=== PATIENT | female | born 1935 | race Caucasian/White ===

== ENCOUNTER 2017-01-04 10:25 | Observation (INO) ==
--- NOTE | 2017-01-04 10:55 | Emergency Department Note ---
Disposition Clinical Impression: Chest pain Qualifiers: Chest pain type: unspecified Qualified Code(s): R07.9 - Chest pain, unspecified Disposition: Admitted As Inpatient Condition: Fair Referrals: Genaro Pérez DO [Primary Care Provider] - Forms: Work/School Release, ED Satisfaction Letter Time of Disposition: 11:42 Chest Pain HPI - General Chief Complaint: ED General Medical Stated Complaint: Multi Complaints Time Seen by Provider: 01/04/17 10:47 Source: patient Limitations: no limitations Vital Signs Reviewed: Yes Nursing Notes Reviewed: Yes - History of Present Illness HPI Narrative: 81-year-old female with history of CAD, status post 3 stents to LAD, RCA RPDA, and with Dr. Heaton, she follows Dr. Oh, she started having chest pain or rest that was 7 out of 10, crampy crushing with radiation to her left arm, felt similar to previous [place], this was at 4 AM this morning, has since resolved completely. Patient now is complaining of a bilateral frontal headache. She rates as 9 out of 10. No neuro symptoms or deficits no weakness in her upper or lower extremities. Patient reported some shortness of breath. Patient's symptoms somewhat improved with her chest pain, she cannot take aspirin or nitroglycerin today, patient denies recent fever chills with changes, nausea vomiting diarrhea constipation dysuria or hematuria Pt complaint: chest pain Onset (ago): hour(s) (4AM) Duration: intermittent Onset: during rest Pain Location: left chest Severity: mild Severity scale (1-10): 7 Quality: aching Pain Radiation: LUE Improves with: nothing Worsens with: nothing Associated symptoms: Reports: nausea Treatments prior to arrival chest pain: none - Related Data Previous Rx's Medication Instructions Recorded Aspirin 81 mg PO DAILY tab.chew 07/20/15 Atorvastatin [Lipitor] 80 mg PO HS #30 tablet 07/20/15 GlipiZIDE [Glucotrol] 5 mg PO BIDWM #1 tablet 07/20/15 Insulin DETEMIR [Levemir] 15 unit SQ 0800 #1 mls 07/20/15 Lisinopril [Zestril] 2.5 mg PO DAILY #30 tablet 07/20/15 Metformin [Glucophage] 1,000 mg PO BIDWM #1 tablet 07/20/15 Metoprolol [Lopressor] 25 mg PO BID #60 tablet 07/20/15 Nitroglycerin [Nitrostat] 0.4 mg SL PRN PRN #30 tab.subl 07/20/15 Ticagrelor [Brilinta] 90 mg PO BID #60 tablet 07/20/15 Allergies Allergy/AdvReac Type Severity Reaction Status Date / Time codeine Allergy Hives Verified 07/18/15 07:44 Penicillins Allergy Hives Verified 07/18/15 07:44 All systems ED: reviewed and negative except as stated. Constitutional: Denies: fever, chills, weakness Cardiovascular: Reports: chest pain, dyspnea on exertion. Denies: syncope Respiratory: Denies: cough, dyspnea, wheezes, sputum production Gastrointestinal: Denies: abdominal pain, nausea, vomiting Genitourinary: Denies: urgency, dysuria Musculoskeletal: Denies: back pain, neck pain Integumentary: Denies: rash Neurological: Reports: as per HPI, headache. Denies: weakness, numbness Psychiatric: Denies: anxiety, depression Chest Pain PMH - Past Medical History Medical history: Reports: cancer, diabetes, myocardial infarction Surgical history: Reports: cancer surgery, cholecystectomy, hysterectomy Psychiatric history: Reports: no psych history - Social History Smoking Status: Never smoker Alcohol use: Reports: none Drug use: Reports: none Physical Exam Constitutional: Elderly female in no acute distress vital signs reviewed hypertensive 180s syss Neck: normal inspection, neck is supple, trachea midline Resp: normal chest inspection, CTA bilaterally, no resp distress CV: RRR, no m/g/r GI: normal inspection, Soft, NTND, BS present Back: normal inspection, no tenderness to palpation Neuro: A&O3, no gross motor or sensory deficits bilaterally MSK: normal inspection, bilateral UE and LE with normal ROM Skin: No rashes, skin warm, dry, intact - General Limitations: no limitations General appearance: alert Course Course Narrative: 81-year-old female with history of CAD, had chest pain arrested 4 AM, will get troponin and chest pain workup, even if initial tests are negative and concerned about this lady given her previous history of STEMI and similar pain, will try nitroglycerin for blood pressure which is mildly elevated. Reassess - Reevaluation(s) Reevaluation #1: Admitted to medicine service, Dr. Haywood accepting, EKG and troponin negative , chest pain resolved after nitroglycerin. Patient currently stable, blood pressure improved to 170 systolic, still mild headache will observe for now Vital Signs Temperature 98.3 F 01/04/17 10:40 Pulse Rate 88 01/04/17 10:40 Respiratory Rate 18 01/04/17 10:40 Blood Pressure 184/105 01/04/17 10:40 O2 Sat by Pulse Oximetry 95 01/04/17 10:40 Temperature 98.3 F 01/04/17 10:40 Pulse Rate 100 01/04/17 11:23 Respiratory Rate 18 01/04/17 11:23 Blood Pressure 171/102 01/04/17 11:23 O2 Sat by Pulse Oximetry 97 01/04/17 11:23 Oxygen Delivery Oxygen Delivery Room Air Chest Pain - MDM Narrative Medical decision making narrative: 81-year-old female with chest pain admitted for chest pain rule out. Stable condition, response to nitroglycerin, negative troponin and EKG - Differential Diagnosis Likely: fracture of rib, unstable angina pectoris, atypical chest pain, st elevation myocardial infraction, chest pain - Medical Records Medical records reviewed: Yes I reviewed the patient's medical records. - Lab Data Lab results reviewed: Yes I reviewed the patient's lab results. Result diagrams: 01/04/17 11:07 01/04/17 11:07 Lab Results 01/04/17 01/04/17 01/04/17 Range/Units 11:07 11:07 11:07 WBC 12.1 H (4.3-11.1) K/mcL RBC 5.02 H (3.82-4.97) M/mcL Hgb 14.0 (11.5-15.4) g/dL Hct 43.0 (35.3-44.9) % MCV 85.7 (83.0-100.0) fL MCH 27.9 L (28.0-33.3) pg MCHC 32.6 (31.6-35.5) g/dL RDW 14.6 H (11.5-14.5) % Plt Count 277 (140-400) K/mcL MPV 10.1 (9.4-12.4) fL Immature Gran % 0.4 (0-4) % Seg Neutrophils % 66.2 % Lymphocytes % 26.1 % Monocytes % 5.7 % Eosinophils % 1.3 % Basophils % 0.3 % Neutrophils # 8.0 (1.6-8.9) K/mcL Lymphocytes # 3.2 (0.6-4.6) K/mcL Monocytes # 0.7 (0.0-1.3) K/mcL Eosinophils # 0.2 (0.0-0.6) K/mcL Basophils # 0.0 (0.0-0.2) K/mcL PT 10.2 (9.4-12.1) Seconds INR 1.0 APTT 32.2 (26.0-36.0) Seconds Sodium (136-145) mEq/L Potassium (3.5-4.5) mEq/L Chloride (98-109) mEq/L Carbon Dioxide (19-29) mEq/L BUN (7-20) mg/dL Creatinine (0.57-1.11) mg/dL Est GFR ( Amer) (> 60) Est GFR (Non-Af Amer) (> 60) BUN/Creatinine Ratio (6-26) Glucose (70-99) mg/dL Calculated Osmolality (280-300) Calcium (8.6-10.8) mg/dL Troponin I (0-0.03) ng/mL B-Natriuretic Peptide 145 H (0-100) pg/mL 01/04/17 01/04/17 Range/Units 11:07 11:07 WBC (4.3-11.1) K/mcL RBC (3.82-4.97) M/mcL Hgb (11.5-15.4) g/dL Hct (35.3-44.9) % MCV (83.0-100.0) fL MCH (28.0-33.3) pg MCHC (31.6-35.5) g/dL RDW (11.5-14.5) % Plt Count (140-400) K/mcL MPV (9.4-12.4) fL Immature Gran % (0-4) % Seg Neutrophils % % Lymphocytes % % Monocytes % % Eosinophils % % Basophils % % Neutrophils # (1.6-8.9) K/mcL Lymphocytes # (0.6-4.6) K/mcL Monocytes # (0.0-1.3) K/mcL Eosinophils # (0.0-0.6) K/mcL Basophils # (0.0-0.2) K/mcL PT (9.4-12.1) Seconds INR APTT (26.0-36.0) Seconds Sodium 134 L (136-145) mEq/L Potassium 3.9 (3.5-4.5) mEq/L Chloride 98 (98-109) mEq/L Carbon Dioxide 27 (19-29) mEq/L BUN 14 (7-20) mg/dL Creatinine 0.92 (0.57-1.11) mg/dL Est GFR ( Amer) > 60 (> 60) Est GFR (Non-Af Amer) 59 L (> 60) BUN/Creatinine Ratio 15 (6-26) Glucose 150 H (70-99) mg/dL Calculated Osmolality 281 (280-300) Calcium 8.8 (8.6-10.8) mg/dL Troponin I 0.01 (0-0.03) ng/mL B-Natriuretic Peptide (0-100) pg/mL - Radiology Data Radiology results reviewed: Yes I reviewed the patient's radiology results. Chest X-Ray 01/04/17 10:56 IMPRESSION: 1. No acute cardiopulmonary disease. D/ / Rach Angel MD / Rach Angel MD Interpreting Provider: Rach Angel MD - EKG Data EKG attestation: Yes I reviewed and interpreted this EKG. EKG shows normal: sinus rhythm Rate: normal (87 bpm) Rhythm: NSR [place]/QRS: normal Q waves: III, aVF Interpretation: unchanged when compared to prior tracing (date) (Previous EKG ) - Core Measures AMI Core Measures Followed: Yes Heart Score - Score History: Moderately Suspicious EKG: Non Specific repolarisation Disturbance Age: Greater than 65 Risk Factors: Equal/Greater than 3 risk factor or history of atherosclerotic disease Troponin: Less than normal limit HEART Score Total: 6
[2017-01-04] MEDS ORDERED: Nitroglycerin 0.4 MG TAB.SUBL SL ONE (10:56)
[2017-01-04] MEDS ORDERED: Aspirin 81 MG TAB.CHEW PO ONE (10:56)
[2017-01-04] MEDS ORDERED: Ondansetron 4 MG/2 ML VIAL IVP ONE (11:11)
[2017-01-04 11:14] LABS: Basophils % 0.3 %; Eosinophils # 0.2 K/mcL (0.0-0.6); Eosinophils % 1.3 %; Immature Granulocytes % 0.4 % (0-4); Lymphocytes # 3.2 K/mcL (0.6-4.6); Lymphocytes % 26.1 %; Mean Corpuscular HGB Conc 32.6 g/dL (31.6-35.5); Mean Corpuscular Hemoglobin 27.9 pg (28.0-33.3); Mean Corpuscular Volume 85.7 fL (83.0-100.0); Mean Platelet Volume 10.1 fL (9.4-12.4); Monocytes # 0.7 K/mcL (0.0-1.3); Monocytes % 5.7 %; Platelet Count 277 K/mcL (140-400); Red Blood Count 5.02 M/mcL (3.82-4.97); Red Cell Distribution Width 14.6 % (11.5-14.5); Segmented Neutrophils % 66.2 %
--- NOTE | 2017-01-04 11:16 | Emergency Department Note ---
Disposition Clinical Impression: Chest pain Disposition: Admitted As Inpatient Condition: Fair Referrals: Genaro Pérez DO [Primary Care Provider] - Forms: ED Satisfaction Letter, Work/School Release General Adult HPI - General Chief complaint: ED General Medical Stated complaint: Multi Complaints Time Seen by Provider: 01/04/17 10:47 Source: patient Limitations: no limitations Nursing Notes Reviewed: Yes Vital Signs Reviewed: Yes - History of Present Illness Pain Scale: 7 - Related Data Home Medications Medication Instructions Recorded Confirmed Insulin DETEMIR [Levemir] 34 unit SQ HS 01/04/17 01/04/17 Levothyroxine [Synthroid] 88 mcg PO DAILY 01/04/17 01/04/17 Previous Rx's Medication Instructions Recorded Aspirin 81 mg PO DAILY tab.chew 07/20/15 Atorvastatin [Lipitor] 80 mg PO HS #30 tablet 07/20/15 GlipiZIDE [Glucotrol] 5 mg PO BIDWM #1 tablet 07/20/15 Metformin [Glucophage] 1,000 mg PO BIDWM #1 tablet 07/20/15 Nitroglycerin [Nitrostat] 0.4 mg SL PRN PRN #30 tab.subl 07/20/15 Allergies Allergy/AdvReac Type Severity Reaction Status Date / Time codeine Allergy Hives Verified 07/18/15 07:44 Penicillins Allergy Hives Verified 07/18/15 07:44 Past Medical History - Past Medical History Medical history: Reports: cancer, diabetes, myocardial infarction Surgical history: Reports: cancer surgery, cholecystectomy, hysterectomy Psychiatric history: Reports: no psych history - Social History Smoking Status: Never smoker Smokeless Tobacco Status: No Alcohol use: Reports: none Drug use: Reports: none Physical Exam - General Limitations: no limitations General appearance: alert Course Vital Signs Temperature 98.3 F 01/04/17 10:40 Pulse Rate 88 01/04/17 10:40 Respiratory Rate 18 01/04/17 10:40 Blood Pressure 184/105 01/04/17 10:40 O2 Sat by Pulse Oximetry 95 01/04/17 10:40 Temperature 98.3 F 01/04/17 10:40 Pulse Rate 100 01/04/17 11:23 Respiratory Rate 18 01/04/17 11:23 Blood Pressure 171/102 01/04/17 11:23 O2 Sat by Pulse Oximetry 97 01/04/17 11:23 Oxygen Delivery Oxygen Delivery Room Air Medical Decision Making - MDM Narrative Medical decision making narrative: I examined this patient and my medical decision-making was reviewed with the TECHNOLOGY SALES CONSULTANT/PA/Advanced Practice Nurse/Resident Physician. I agree with the documented findings, disposition and treatment plan as described except to the extent set forth below. Patient seen on arrival with Dr. Mosley, I agree with his evaluation and management plan, supervised the care of the patient that stay. Patient presents today with some chest pressure. She has had a history of coronary disease in the past. She is getting a cardiac workup here. And then most likely will need admission. She is in agreement with this plan. Chest X-Ray 01/04/17 10:56 IMPRESSION: 1. No acute cardiopulmonary disease. D/ / Rach Angel MD / Rach Angel MD Interpreting Provider: Rach Angel MD 1145 hrs.: Troponin is back and is not elevated. Chest x-ray looks good. She is pain-free at this time. Going to bring her in for a cardiac workup. She is in agreement with this plan. Paging hospitalist. - Lab Data Result diagrams: 01/04/17 11:07 01/04/17 11:07 Lab Results 01/04/17 01/04/17 01/04/17 Range/Units 11:07 11:07 11:07 WBC 12.1 H (4.3-11.1) K/mcL RBC 5.02 H (3.82-4.97) M/mcL Hgb 14.0 (11.5-15.4) g/dL Hct 43.0 (35.3-44.9) % MCV 85.7 (83.0-100.0) fL MCH 27.9 L (28.0-33.3) pg MCHC 32.6 (31.6-35.5) g/dL RDW 14.6 H (11.5-14.5) % Plt Count 277 (140-400) K/mcL MPV 10.1 (9.4-12.4) fL Immature Gran % 0.4 (0-4) % Seg Neutrophils % 66.2 % Lymphocytes % 26.1 % Monocytes % 5.7 % Eosinophils % 1.3 % Basophils % 0.3 % Neutrophils # 8.0 (1.6-8.9) K/mcL Lymphocytes # 3.2 (0.6-4.6) K/mcL Monocytes # 0.7 (0.0-1.3) K/mcL Eosinophils # 0.2 (0.0-0.6) K/mcL Basophils # 0.0 (0.0-0.2) K/mcL PT 10.2 (9.4-12.1) Seconds INR 1.0 APTT 32.2 (26.0-36.0) Seconds Sodium (136-145) mEq/L Potassium (3.5-4.5) mEq/L Chloride (98-109) mEq/L Carbon Dioxide (19-29) mEq/L BUN (7-20) mg/dL Creatinine (0.57-1.11) mg/dL Est GFR ( Amer) (> 60) Est GFR (Non-Af Amer) (> 60) BUN/Creatinine Ratio (6-26) Glucose (70-99) mg/dL Calculated Osmolality (280-300) Calcium (8.6-10.8) mg/dL Troponin I (0-0.03) ng/mL B-Natriuretic Peptide 145 H (0-100) pg/mL 01/04/17 01/04/17 Range/Units 11:07 11:07 WBC (4.3-11.1) K/mcL RBC (3.82-4.97) M/mcL Hgb (11.5-15.4) g/dL Hct (35.3-44.9) % MCV (83.0-100.0) fL MCH (28.0-33.3) pg MCHC (31.6-35.5) g/dL RDW (11.5-14.5) % Plt Count (140-400) K/mcL MPV (9.4-12.4) fL Immature Gran % (0-4) % Seg Neutrophils % % Lymphocytes % % Monocytes % % Eosinophils % % Basophils % % Neutrophils # (1.6-8.9) K/mcL Lymphocytes # (0.6-4.6) K/mcL Monocytes # (0.0-1.3) K/mcL Eosinophils # (0.0-0.6) K/mcL Basophils # (0.0-0.2) K/mcL PT (9.4-12.1) Seconds INR APTT (26.0-36.0) Seconds Sodium 134 L (136-145) mEq/L Potassium 3.9 (3.5-4.5) mEq/L Chloride 98 (98-109) mEq/L Carbon Dioxide 27 (19-29) mEq/L BUN 14 (7-20) mg/dL Creatinine 0.92 (0.57-1.11) mg/dL Est GFR ( Amer) > 60 (> 60) Est GFR (Non-Af Amer) 59 L (> 60) BUN/Creatinine Ratio 15 (6-26) Glucose 150 H (70-99) mg/dL Calculated Osmolality 281 (280-300) Calcium 8.8 (8.6-10.8) mg/dL Troponin I 0.01 (0-0.03) ng/mL B-Natriuretic Peptide (0-100) pg/mL
[2017-01-04 11:23] LABS: Prothrombin Time 10.2 Seconds (9.4-12.1)
[2017-01-04 11:26] LABS: Activated Partial Thrombo Time 32.2 Seconds (26.0-36.0); BUN/Creatinine Ratio 15 (6-26); Blood Urea Nitrogen 14 mg/dL (7-20); Calcium 8.8 mg/dL (8.6-10.8); Carbon Dioxide 27 mEq/L (19-29); Chloride 98 mEq/L (98-109); Glucose 150 mg/dL (70-99); Osmolality,Calculated 281 (280-300); Potassium 3.9 mEq/L (3.5-4.5); Sodium 134 mEq/L (136-145); eGFR For African Americans > 60 (> 60); eGFR For Non-African Americans 59 (> 60)
[2017-01-04] MEDS ORDERED: Naloxone 0.4 MG/ML INJ IVP PRN (15:44)
[2017-01-04] MEDS ORDERED: Nitroglycerin 0.4 MG TAB.SUBL SL PRN ×2 (15:47→16:11)
[2017-01-04] MEDS ORDERED: Dextrose Gel 15 GM PO PRN ×2 (15:51)
[2017-01-04] MEDS ORDERED: *HR* Dextrose 50 % in Water (Syg) 50 ML SYRINGE IVP PRN (15:51)
--- NOTE | 2017-01-04 16:00 | Internal Med History&Physical ---
<Kamryn Haywood - Last Filed: 01/04/17 20:12> Internal Medicine - H&P: HPI History of present illness: Ms. Garcia is a 81 year old female Internal Medicine - H&P: Meds Aspirin 81 mg PO DAILY tab.chew 07/20/15 [Rx] Atorvastatin [Lipitor] 80 mg PO HS #30 tablet 07/20/15 [Rx] GlipiZIDE [Glucotrol] 5 mg PO BIDWM #1 tablet 07/20/15 [Rx] Metformin [Glucophage] 1,000 mg PO BIDWM #1 tablet 07/20/15 [Rx] Nitroglycerin [Nitrostat] 0.4 mg SL PRN PRN #30 tab.subl 07/20/15 [Rx] Insulin DETEMIR [Levemir] 34 unit SQ HS 01/04/17 [History] Levothyroxine [Synthroid] 88 mcg PO DAILY 01/04/17 [History] Allergies codeine Allergy (Verified 07/18/15 07:44) Hives Penicillins Allergy (Verified 07/18/15 07:44) Hives All Systems PM: A 10-system review of systems was performed and is negative for pertinent findings except as documented above in the HPI. - Constitutional Vitals: Temp Pulse Resp BP Pulse Ox 97.9 F 74 16 154/69 93 L 01/04/17 19:40 01/04/17 19:40 01/04/17 19:40 01/04/17 19:40 01/04/17 19:40 Internal Med - H&P Results - Labs CBC & Chem 7: 01/04/17 11:07 01/04/17 11:07 Labs: Cardiac Enzymes 01/04/17 Range/Units 16:51 Troponin I 0.01 (0-0.03) ng/mL - Attending Attestation Patient seen and examined, agree with assessment and plan by JS Frederick. Patient with chest pain, headache, and HTN. Likely her HTN is driving the headache and may be driving the chest pain. She has significant known CAD ( STEMI 2 years ago), so she does need ischemia workup. Currently chest pain free. Plan for stress test in AM. <Babs Frederick - Last Filed: 01/04/17 22:44> Date of Encounter: 01/04/17 Time of Encounter: 15:55 Assessment and Plan (1) Chest pain Current visit: Yes Status: Acute Patient reporting pain in left lateral chest and left arm on and off for a couple months. She reports she is chest pain free now. CXR showed no acute cardiopulmonary disease. EKG showed normal sinus Rhythm unchanged from previous EKG. Initial troponin negative. serial troponins continuous cardiac rn echocardiogram and stress test in the morning. Qualifiers: Chest pain type: other chest pain Qualified Code(s): R07.89 - Other chest pain; R07.8 - Other chest pain (2) Headache Current visit: Yes Status: Acute Patient reports headache for 1 month, moving around to different regions of her head, most recently at the back of her head. Headache was relieved today after aspirin and Nitro. blood pressure was elevated on arrival in the 170-180s/100s and also came down after administration of Nitro. patient is not on any blood pressure medications at home, and it is possible her blood pressure has been running high and causing her headache. Will monitor blood pressure. Qualifiers: Headache type: tension-type Headache chronicity pattern: chronic headache Intractability: not intractable Qualified Code(s): G44.229 - Chronic tension -type headache, not intractable (3) Type 2 diabetes mellitus Current visit: Yes Status: Acute Last Hgb A1c of 12.0% in 07/2015 Will recheck A1c. Diabetic, heart healthy diet check blood sugars [facility] Hold home doses of Glipizide and metformin Basal dose of levemir 17u SQ tonight (half her normal dose because she is NPO after midnight for stress test) Sliding scale correction dose [facility] hypoglycemic protocol. 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 Patient not on any blood pressure medications at home. will monitor her blood pressure while here and consider starting her on Beta aren and/or Ashwin inhibitor if blood pressures are elevated. Qualifiers: Hypertension type: essential hypertension Qualified Code(s): I10 - Essential (primary) hypertension (5) DVT prophylaxis Current visit: Yes Status: Acute Encourage ambulation with assistance anti-embolic stockings Lovenox 40mg SQ daily Internal Medicine - H&P: HPI Chief complaint: chest pain, headache Admitted From: Emergency Dept Plans for Post Hospital Care: Home History of present illness: Ms. Garcia is a 81 year old female with diabetes, coronary artery disease status post stent placement, history of uterine cancer status post hysterectomy who presented to the emergency department today with complaints of headache and left -sided chest pain radiating to her left arm. Patient reports she has had a headache for approximately one month and has been moving around different regions of her head was recently at the back of her head and reports pain was 7 out of 10. Patient's family reports that she has been grabbing her left side of her chest and her left arm occasionally for the last couple of months. Patient does admit that her left arm hurts in her left lateral chest hurts occasionally, but denies any current pain on exam. Patient does report with her previous IA in 2015 her symptoms included left arm pain that radiated across her chest to her right arm. She reports occasional lightheadedness, she denies any shortness of breath, or palpitations. She reported 2 episodes of nausea today without vomiting, denies any abdominal pain, diarrhea or changes in stools. She denies any fever, chills, sweats, body aches. She denies any numbness or tingling, or focal weakness. She denies any increased swelling. She reports her headache and chest pain was relieved by aspirin and nitroglycerin given in the emergency department Evaluation in the emergency department included a chest x-ray which showed no acute cardiopulmonary disease , EKG which showed normal sinus rhythm and was unchanged from previous EKG in 2015. Troponin was negative at 0.01, BNP was mildly elevated at 145. White blood cell count was mildly elevated at 12.1. On exam, patient is alert and oriented, in no acute distress. She reports her headache is gone, and her chest pain is gone as well. Lungs are clear bilaterally to auscultation, heart has regular rate and rhythm, trace bilateral lower extremity edema. Past Med Surg Social Fam HX - Past Medical History Medical history: cancer (uterine cancer s/p hysterectomy), coronary artery disease, diabetes, hyperlipidemia, myocardial infarction, thyroid disease Psychiatric history: no psych history - Past Surgical History Surgical History: angioplasty/stent, cancer surgery (hysterectomy), cholecystectomy, hysterectomy - Social History Smoking Status: Never smoker Smokeless Tobacco Status: No Alcohol use: none Drug use: none - Family History Mother Living Status: Age at : 89 Cause of : congestive heart failure Hx Family Cardiac Disorders: Yes (Congestive heart failure) Father Living Status: Age at : 86 Cause of : Cancer Daughter Living Status: Still Living Hx Family Medical Disorders: Yes (Factor V Leiden deficiency) All Systems PM: A 10-system review of systems was performed and is negative for pertinent findings except as documented above in the HPI. - Constitutional Constitutional: no chills, no fever(s), no night sweats - EENT Eyes: no change in vision, no discharge, no pain, no photophobia Ears: no ear discharge, no ear pain, no tinnitus Nose, mouth and throat: no dysphagia, no nasal discharge, no neck pain, no sore throat - Cardiovascular Cardiovascular ROS IM: chest pain, lightheadedness, no diaphoresis, no dyspnea, no palpitations, no syncope - Respiratory Respiratory: cough (dry), no dyspnea, no wheezing, no excessive phlegm production - Gastrointestinal Gastrointestinal: nausea, no abdominal pain, no diarrhea, no hematemesis, no hematochezia, no melena, no vomiting - Genitourinary Genitourinary: no change in urinary stream, no dysuria, no flank pain, no hematuria - Musculoskeletal Musculoskeletal ROS IM: no numbness, no tingling - Integumentary Integumentary IM: no rash, no unusual bruising - Neurological Neurological ROS: headache(s) (Patient reports headache x 1 month. ), no confusion, no convulsions, no focal weakness, no numbness, no tingling, no tremor(s) - Hematologic/Lymphatic Hematologic/Lymphatic: no easy bruising - Constitutional Vitals: Temp Pulse Resp BP Pulse Ox 98.1 F 72 15 132/69 97 01/04/17 15:06 01/04/17 15:06 01/04/17 15:06 01/04/17 15:06 01/04/17 15:06 General appearance: Present: A&O X 3, pleasant, no acute distress - Head Head exam: Present: atraumatic, normocephalic - Eye Eye exam: Present: PERRL, conjuntiva pink, sclera anicteric Pupils: Present: PERRL - Neck Neck exam general surgery: Present: supple, trachea midline. Absent: lymphadenopathy - Respiratory Respiratory exam: Present: CTAB. Absent: accessory muscle use, rales, rhonchi, wheezes - Cardiovascular Cardiovascular exam: Present: RRR, +S1, +S2. Absent: diastolic murmur, gallop, rubs, systolic murmur - GI/Abdominal GI/Abdominal exam: Present: normal bowel sounds, soft, no peritoneal signs. Absent: distended, tenderness - Extremities Exam Extremities exam: Present: pedal edema (trace), warm, radial pulses palpable and symetrical. Absent: calf tenderness, cyanotic - Neurological Exam Neurological exam: Present: CN II-XII intact, oriented X3, no focal deficits. Absent: pronater drift, facial droop, speech deficit Additional comments: Patient with constant movement/fidgeting of legs and arms, patient and family report this is normal for her. - Expanded Neurological Exam Cranial Nerves: EOM's intact PM: Normal, tongue deviation PM: Normal Neuro motor strength exam: LUE: 5, RUE: 5 - Skin Skin exam: Present: dry, intact Internal Med - H&P Results - Labs CBC & Chem 7: 01/04/17 11:07 01/04/17 11:07 Labs: All Lab Results (24 Hours) 01/04/17 01/04/17 01/04/17 Range/Units 11:07 11:07 11:07 WBC 12.1 H (4.3-11.1) K/mcL RBC 5.02 H (3.82-4.97) M/mcL Hgb 14.0 (11.5-15.4) g/dL Hct 43.0 (35.3-44.9) % MCV 85.7 (83.0-100.0) fL MCH 27.9 L (28.0-33.3) pg MCHC 32.6 (31.6-35.5) g/dL RDW 14.6 H (11.5-14.5) % Plt Count 277 (140-400) K/mcL MPV 10.1 (9.4-12.4) fL Immature Gran % 0.4 (0-4) % Seg Neutrophils % 66.2 % Lymphocytes % 26.1 % Monocytes % 5.7 % Eosinophils % 1.3 % Basophils % 0.3 % Neutrophils # 8.0 (1.6-8.9) K/mcL Lymphocytes # 3.2 (0.6-4.6) K/mcL Monocytes # 0.7 (0.0-1.3) K/mcL Eosinophils # 0.2 (0.0-0.6) K/mcL Basophils # 0.0 (0.0-0.2) K/mcL PT 10.2 (9.4-12.1) Seconds INR 1.0 APTT 32.2 (26.0-36.0) Seconds Sodium (136-145) mEq/L Potassium (3.5-4.5) mEq/L Chloride (98-109) mEq/L Carbon Dioxide (19-29) mEq/L BUN (7-20) mg/dL Creatinine (0.57-1.11) mg/dL Est GFR ( Amer) (> 60) Est GFR (Non-Af Amer) (> 60) BUN/Creatinine Ratio (6-26) Glucose (70-99) mg/dL POC Glucose (58-89) Calculated Osmolality (280-300) Calcium (8.6-10.8) mg/dL Troponin I (0-0.03) ng/mL B-Natriuretic Peptide 145 H (0-100) pg/mL 01/04/17 01/04/17 01/04/17 Range/Units 11:07 11:07 15:04 WBC (4.3-11.1) K/mcL RBC (3.82-4.97) M/mcL Hgb (11.5-15.4) g/dL Hct (35.3-44.9) % MCV (83.0-100.0) fL MCH (28.0-33.3) pg MCHC (31.6-35.5) g/dL RDW (11.5-14.5) % Plt Count (140-400) K/mcL MPV (9.4-12.4) fL Immature Gran % (0-4) % Seg Neutrophils % % Lymphocytes % % Monocytes % % Eosinophils % % Basophils % % Neutrophils # (1.6-8.9) K/mcL Lymphocytes # (0.6-4.6) K/mcL Monocytes # (0.0-1.3) K/mcL Eosinophils # (0.0-0.6) K/mcL Basophils # (0.0-0.2) K/mcL PT (9.4-12.1) Seconds INR APTT (26.0-36.0) Seconds Sodium 134 L (136-145) mEq/L Potassium 3.9 (3.5-4.5) mEq/L Chloride 98 (98-109) mEq/L Carbon Dioxide 27 (19-29) mEq/L BUN 14 (7-20) mg/dL Creatinine 0.92 (0.57-1.11) mg/dL Est GFR ( Amer) > 60 (> 60) Est GFR (Non-Af Amer) 59 L (> 60) BUN/Creatinine Ratio 15 (6-26) Glucose 150 H (70-99) mg/dL POC Glucose 114 H (58-89) Calculated Osmolality 281 (280-300) Calcium 8.8 (8.6-10.8) mg/dL Troponin I 0.01 (0-0.03) ng/mL B-Natriuretic Peptide (0-100) pg/mL - Diagnostic Studies Chest x-ray Additional comments: Chest X-Ray 01/04/17 10:56 IMPRESSION: 1. No acute cardiopulmonary disease. D/ / 01/04/2017 11:48:07 Rach Angel MD / bcarter Interpreting Provider: Rahc Angel MD
[2017-01-04] MEDS: Insulin LISPRO 300 UNITS/3 ML VIAL SQ SCH (16:08)
[2017-01-04 16:29] LABS: Hemoglobin A1C 10.1 %
[2017-01-04] MEDS ORDERED: Insulin DETEMIR 100 UNIT/ML X5UNITS SQ SCH (21:00)
[2017-01-04] MEDS ORDERED: Insulin LISPRO 300 UNITS/3 ML VIAL SQ SCH (21:00)
[2017-01-05] MEDS ORDERED: amLODIPine 5 MG TABLET PO ONE (03:47)
[2017-01-05 05:50] LABS: Basophils % 0.5 %; Eosinophils # 0.3 K/mcL (0.0-0.6); Eosinophils % 4.4 %; Hematocrit 39.6 % (35.3-44.9); Hemoglobin 13.1 g/dL (11.5-15.4); Immature Granulocytes % 0.3 % (0-4); Lymphocytes # 2.2 K/mcL (0.6-4.6); Lymphocytes % 28.2 %; Mean Corpuscular HGB Conc 33.1 g/dL (31.6-35.5); Mean Corpuscular Hemoglobin 28.2 pg (28.0-33.3); Mean Corpuscular Volume 85.2 fL (83.0-100.0); Mean Platelet Volume 10.6 fL (9.4-12.4); Monocytes # 0.6 K/mcL (0.0-1.3); Monocytes % 7.7 %; Neutrophils # 4.6 K/mcL (1.6-8.9); Platelet Count 255 K/mcL (140-400); Red Blood Count 4.65 M/mcL (3.82-4.97); Red Cell Distribution Width 14.7 % (11.5-14.5); Segmented Neutrophils % 58.9 %
[2017-01-05 06:03] LABS: BUN/Creatinine Ratio 16 (6-26); Blood Urea Nitrogen 15 mg/dL (7-20); Calcium 8.8 mg/dL (8.6-10.8); Carbon Dioxide 27 mEq/L (19-29); Chloride 105 mEq/L (98-109); Glucose 156 mg/dL (70-99); Osmolality,Calculated 294 (280-300); Potassium 4.1 mEq/L (3.5-4.5); Sodium 140 mEq/L (136-145); eGFR For African Americans > 60 (> 60); eGFR For Non-African Americans 59 (> 60)
[2017-01-05] MEDS ORDERED: Regadenoson 0.4 MG/5 ML SYRINGE IVP ONE (06:55)
[2017-01-05] MEDS ORDERED: *HR* Enoxaparin 40 MG/0.4 ML SYRINGE SQ SCH (07:00)
[2017-01-05] MEDS: Insulin LISPRO 300 UNITS/3 ML VIAL SQ SCH ×2 (08:00→12:15)
[2017-01-05] MEDS ORDERED: Aspirin 81 MG TAB.CHEW PO SCH (09:00)
--- NOTE | 2017-01-05 09:49 | ECHO - Doppler Report ---
Echocardiogram Name: Hortencia Garcia Date of Study: 01/05/2017 Date: 1935 Ht: 61.0 in Medical Record#: [id number] Age: 81 Wt: 210.0 lb Gender: Female BSA: 1.93 Order #: [id number] Location: [facility] Room #: [id number] Reading Physician: Tiffanie Oh DO Credit Risk Specialist: Katie Santacruz RDCS, RVT Ordering Physician: Babs Frederick CNP Primary Physician: Genaro Pérez DO Indications: Chest pain Impressions: LVEF 60%. Normal left ventricular size and systolic function. There is evidence of mild diastolic dysfunction of the left ventricle. Normal right ventricular size and function. No significant valvular dysfunction. No pulmonary hypertension. Left Ventricular Wall Motion: Rest Echo Findings All wall segments showed normal motion. Findings: Study Quality * Technically adequate exam. ECG Findings * Normal sinus rhythm. Left Ventricle * LVEF 60%. * Normal LV chamber size, wall thickness and function. * Mild left ventricular diastolic dysfunction. Left Atrium * Normal left atrial size. Mitral Valve * Normal mitral valve structure. * No mitral stenosis. * No mitral regurgitation. Aortic Valve * No aortic regurgitation. * Aortic valve not well visualized. * No aortic stenosis. Tricuspid Valve * Tricuspid valve not well visualized. * No tricuspid regurgitation. * Estimated RA pressure is 3 mmHg. Pulmonic Valve * Pulmonic valve is not well visualized. * No pulmonic stenosis. * No pulmonic regurgitation. Pulmonary Artery * Pulmonary artery not well visualized. Right Ventricle * Normal right ventricular structure and function. Right Atrium * Normal right atrial size. Interatrial Septum * No evidence of PFO by color Doppler. IVC * Normal IVC dimensions and inspiratory collapse. Pericardium * There is no pericardial effusion present. Aorta * Normally sized aortic root. History Hypertension Diabetes Family History of CAD History of CAD/PTCA Myocardial Infarction 07-18-2015 a Previous Echo was performed. Measurements: BP: 169/ 80 2D Normal Values RVIDd: 3.10 cm <2.7 cm IVSd: 1.00 cm 0.6 - 1.0 cm LVIDd: 4.40 cm 3.7 - 5.6 cm LVPWd: .90 cm 0.6 - 1.1 cm LVIDs: 2.90 cm 1.5 - 3.6 cm AO: 2.60 cm < 4.0 cm LA: 3.50 cm 2.0 - 4.0cm %FS: 34.10 cm >25 % LA volume: 63 Mitral Valve Peak E:.77 m/sec Peak A:.87 m/sec E/A Ratio:0.9 Peak E' Lat Jorge:4.68 cm/s Peak E' Med Jorge:5.07 cm/s E/E' Lat Ratio:16.3 E/E' Med Ratio:15.1 Updated by Tiffanie Oh on 01/05/2017 9:19:26 AM electronically signed on 01/05/2017 9:44:04 AM with status of Final Wall Motion [place]: 1=Normal, 2=Hypokinesis, 3=Akinesis, 4=Dyskinesis, 5=Aneurysmal, 6=Hyperkinetic, X=Not Visualized (Blank)=Missing
--- NOTE | 2017-01-05 12:22 | Nuclear Medicine Stress Report ---
Regadenoson Nuclear Stress Name: Hortencia Garcia Date of Study: 01/05/2017 Date: 1935 Ht: 61.0 in Medical Record#: [id number] Age: 81 Wt: 210.0 lb Gender: Female Order #: [id number] Location: [facility] Room: [facility] Supervising Provider: Estevan Arenas CNP Reading Physician: Tiffanie Oh DO Ordering Physician: Monserrat Quan CNP Primary Care Physician: Genaro Pérez DO Stress Technologist: Jose M Rubalcava, [employer] ENTERTAINER, [employer] [place] Supervisor: Rosa Carpenter Indications: Chest Pain Impression: Mild jesse-infarct ischemia involving the distal inferior wall and apex. Fixed defect involving the basal and mid inferior wall representing infarct. Pharmacologic ECG was negative for ischemia at the level of heart rate achieved. Gated EF = 68%. Findings communicated to ordering physician. History: Hypertension Diabetes Hypercholesteremia Prior PCI Stress Test Summary: Stress Test Type: Pharmacologic Regadenoson 0.4mg/5ml given IV Baseline Information: Initial Heart Rate: 78 Blood Pressure: 160/84 Stress Information: Stress Time: 4 min 00 sec Test Terminated Due to (primary): Completed Protocol Maximum Blood Pressure: 160/80 Maximum Heart Rate: 105 Percent Maximum Heart Rate Achieved: 76 Double Product: 16,800 METS Reached: 1 Symptoms: Nausea, Headache Nuclear Summary: SPECT myocardial perfusion imaging using Tc99m Sestamibi given intravenously was performed at rest and following cardiac stress testing. The resting images were obtained following initial dose of 11.6 mCi. Following stress an additional dose of 34.1 mCi was given at peak exercise or 30 seconds post regadenoson infusion. Medication Given: Time Medication Dose Units Route Findings: Stress Note * Resting ECG demonstrated normal sinus rhythm with leftward axis and poor R wave progression. * Pharmacologic stress ECG is negative for ischemia at level of heart rate achieved. * No arrhythmias were noted during stress. * Patient had no chest pain during stress. Hemodynamic responses * Normal hemodynamic responses to pharmacologic stress. Study Quality * Study quality was fair. Gated EF % * Gated EF = 68%. Left Ventricle * The left ventricle is not dilated. TID * No evidence of transient ischemic dilatation. Lung Uptake * There is no evidence of increase lung uptake. NORMALS * Normal wall motion. PERFUSION * There is a small to medium sized primarily fixed perfusion defect involving the basal and mid inferior wall. * During stress, there is worsening of perfusion in the distal inferior wall and apex representing jesse-infarct ischemia. Updated by Tiffanie Oh on 01/05/2017 12:16:28 PM electronically signed on 01/05/2017 12:18:43 PM with status of Final
--- NOTE | 2017-01-05 12:51 | Cardiology Consult Note ---
Date of Encounter: 01/05/17 Time of Encounter: 12:46 Assessment and Plan (1) Abnormal stress test Current Visit: Yes Status: Acute Stress test was positive for mild jesse-infarct ischemia in the distal inferior wall and apex. Gated EF 68%. Pharmacologic ECG negative for ischemia. Low risk stress test findings that correlate with known CAD. TTE showed normal LVEF and no wall motion abnormalities. [facility] 07/18/15- Inferior wall STEMI, patent mLAD stent, 40-50% stenosis distal to stent, 99% stenosis 1st OM (small vessel), 100% stenosis dRCA and pPDA with thrombus, PTCA and ART x2 placed. She recently stopped multiple medications on her own d/t not feeling well. B/p 187/105 on admission. I discussed medical management vs [facility]. She agrees with medical management including restarting metoprolol and lisinopril. Better blood pressure control. NTG SL PRN. Start imdur. Monitor for headaches. Headache on admission may have been secondary to high blood pressure. (2) Coronary artery disease Current Visit: Yes Status: Chronic H/o inferior STEMI s/p PCI to her RCA and rPDA in 2014. There was a 99% stenosis in the OM remaining, small vessel. Continue asa, statin, and add bb back. Qualifiers: Coronary Disease-Associated Artery/Lesion type: [place] artery [place] vs. transplanted heart: [place] heart Associated angina: without angina Qualified Code(s): I25.10 - Atherosclerotic heart disease of [place] coronary artery without angina pectoris (3) Hyperlipidemia Current Visit: No Status: Chronic Continue statin. Qualifiers: Hyperlipidemia type: unspecified Qualified Code(s): E78.5 - Hyperlipidemia , unspecified (4) Hypertension Current Visit: Yes Status: Acute B/p 187/105 on admission.Stopped home b/p medications. Restart metoprolol and lisinopril. Low sodium diet. Qualifiers: Hypertension type: essential hypertension Qualified Code(s): I10 - Essential (primary) hypertension (5) Obesity (BMI 30-39.9) Current Visit: Yes Status: Acute Discussion w patient/family: The assessment and plan as outlined above was discussed with the patient and/or family members who expressed understanding and agreement. All questions were answered. Thank you for involving us in the care of your patient. Please call with any questions. History of Present Illness Consult date: 01/05/17 Requesting physician: Monserrat Quan Consult reason: abnormal stress Chief complaint: Chest pain History of present illness: Ms. Garcia is a 81 year old female with a history of NE and PCI to her RCA and RPDA in 2014 and diabetes type II who presented with chest pain and headache intermittently over the past two weeks. Her pain is described as a left sided pain radiating under her left breast. The pain occurs at rest and with physical activity. She underwent a non-exercise pharmacologic stress test that was found to be abnormal. Cardiology consulted for further evaluation. Troponin negative x 3 and EKG showed no acute changes. She reports stopping her medications on her own d/t upset stomach and fatigue. She stopped taking her beta-aren, lisinopril, and lasix. Her blood pressure was 184/105 on admission. Past Med Surg Social Fam HX - Past Medical History Attestation: Yes The following information was validated with the patient. Medical history: cancer (uterine cancer s/p hysterectomy), coronary artery disease, diabetes, hyperlipidemia, myocardial infarction, thyroid disease Psychiatric history: no psych history - Past Surgical History Surgical History: angioplasty/stent, cancer surgery (hysterectomy), cholecystectomy, hysterectomy - Social History Smoking Status: Never smoker Smokeless Tobacco Status: No Alcohol use: none Drug use: none - Family History Father Living Status: Age at : 86 Cause of : Cancer Daughter Living Status: Still Living Hx Family Medical Disorders: Yes (Factor V Leiden deficiency) Mother Living Status: Age at : 89 Cause of : congestive heart failure Hx Family Cardiac Disorders: Yes (Congestive heart failure) Medications and Allergies Aspirin 81 mg PO DAILY tab.chew 07/20/15 [Rx] Atorvastatin [Lipitor] 80 mg PO HS #30 tablet 07/20/15 [Rx] GlipiZIDE [Glucotrol] 5 mg PO BIDWM #1 tablet 07/20/15 [Rx] Metformin [Glucophage] 1,000 mg PO BIDWM #1 tablet 07/20/15 [Rx] Nitroglycerin [Nitrostat] 0.4 mg SL PRN PRN #30 tab.subl 07/20/15 [Rx] Insulin DETEMIR [Levemir] 34 unit SQ HS 01/04/17 [History] Levothyroxine [Synthroid] 88 mcg PO DAILY 01/04/17 [History] Allergies codeine Allergy (Verified 07/18/15 07:44) Hives Penicillins Allergy (Verified 07/18/15 07:44) Hives All Systems Review: A 10-system review of systems was performed and is negative for pertinent findings except as documented above in the HPI. Physical Examination Vital Signs, Last 4 Hours Temp Pulse Resp BP Pulse Ox 01/05/17 11:25 98.0 F 82 15 156/69 93 L General: Conversant, No Apparent Distress, Other (female) HEENT: Atraumatic, Normocephaly, Mucus Membranes Moist Neck: No JVD, Normal carotid pulses Cardiac: Reg Rate and Rhythm, Normal S1 and S2, No Murmur Lungs: Normal Breath Sounds, No Wheeze, Rales, Rhonchi Neuro: Alert and responsive, No focal deficits noted Abdomen: Soft, Non-Tender Skin: No rashes noted on visualized skin Musculoskeletal: No Chest Wall Tenderness Extremities: No Clubbing, No Cyanosis, No Edema, Normal Pulses Results 01/05/17 05:23 01/05/17 05:23 Lab Results 01/04/17 01/04/17 01/05/17 16:51 22:21 05:23 WBC 7.8 Hgb 13.1 Hct 39.6 Plt Count 255 Sodium Potassium Chloride Carbon Dioxide BUN Creatinine Glucose Calcium Troponin I 0.01 0.01 01/05/17 05:23 WBC Hgb Hct Plt Count Sodium 140 Potassium 4.1 Chloride 105 Carbon Dioxide 27 BUN 15 Creatinine 0.92 Glucose 156 H Calcium 8.8 Troponin I - Imaging and Cardiology Stress Test: report reviewed Echo: report reviewed - EKG Interpretation EKG results cardiology: personally reviewed (Sr with no acute ST changes, old inferior NE.) Consult Discharge Plan - Plan Referrals: Genaro Pérez DO [Primary Care Provider] -
[2017-01-05] MEDS ORDERED: Isosorbide MONOnitrate (24 HR) 30 MG TAB.ER.24H PO SCH (14:30)
[2017-01-05 15:22] VITALS: BP 158/81
--- NOTE | 2017-01-05 15:37 | Discharge Summary ---
Date of Encounter: 01/05/17 Time of Encounter: 14:00 - Discharge Diagnosis (1) Chest pain Priority: Primary Status: Resolved Comments: Patient denied chest pain on day of discharge. Troponins negative. Stress test abnormal and cardiology brought on board who elected to proceed with medical management. Follow-up outpatient. Qualifiers: Chest pain type: other chest pain Qualified Code(s): R07.89 - Other chest pain; R07.8 - Other chest pain (2) Abnormal stress test Priority: Primary Status: Acute (3) Headache Priority: Primary Status: Acute Comments: Acute on chronic. Patient sitting she has been getting headaches over the past several months. Likely related to elevated blood pressure, her headache subsided when her blood pressure was lowered. No vision changes or gait abnormalities. Qualifiers: Headache type: tension-type Headache chronicity pattern: chronic headache Intractability: not intractable Qualified Code(s): G44.229 - Chronic tension -type headache, not intractable (4) Noncompliance Priority: Primary Status: Acute Comments: Patient states she stopped taking all of her medications approximately 6 months ago because she did not feel as if she needed them and stated that they were making her feel worse. She states she intends to be compliant with the proposed treatment plan after discharge. (5) Coronary artery disease Priority: Secondary Status: Chronic Qualifiers: Coronary Disease-Associated Artery/Lesion type: [place] artery [place] vs. transplanted heart: [place] heart Associated angina: without angina Qualified Code(s): I25.10 - Atherosclerotic heart disease of [place] coronary artery without angina pectoris (6) Type 2 diabetes mellitus, uncontrolled Priority: Secondary Status: Chronic Comments: Patient readily endorses noncompliance stating she stopped taking all of her medications are proximally 6 months ago. A1c 10.1%. We will place her back on her glipizide and metformin. Follow-up closely outpatient. Check glucose daily and as needed Qualifiers: Diabetes mellitus complication status: with hyperglycemia Diabetes mellitus alf insulin use: without equipment operator intermodal yard use Qualified Code(s): E11.65 - Type 2 diabetes mellitus with hyperglycemia (7) Hypertension Priority: Secondary Status: Chronic Comments: Uncontrolled upon presentation as the patient was not taking her home medications. She was started on lisinopril and Imdur during this visit, blood pressure improved at time of discharge. Recommend daily blood pressure checks at home, keeping a log, and following up outpatient. Qualifiers: Hypertension type: essential hypertension Qualified Code(s): I10 - Essential (primary) hypertension (8) DVT prophylaxis Priority: Primary Status: Acute Comments: Subcutaneous Lovenox while admitted (9) Obesity (BMI 30-39.9) Priority: Secondary Status: Chronic - Discharge Medications Prescriptions: Aspirin 81 mg PO DAILY #30 tab.chew GlipiZIDE [Glucotrol] 5 mg PO BIDWM #60 tablet Isosorbide MONOnitrate (24 HR) [Imdur] 30 mg PO DAILY #30 tab.er.24h Lisinopril [Zestril] 2.5 mg PO DAILY #15 tablet Metformin HCl [Glucophage] 1,000 mg PO BIDWM #60 tablet Metoprolol [Lopressor] 25 mg PO BID #60 tablet Nitroglycerin [Nitrostat] 0.4 mg SL PRN PRN #30 tab.subl PRN Reason: Chest Pain Home Medications: Atorvastatin [Lipitor] 80 mg PO HS #30 tablet 07/20/15 [Rx] Insulin DETEMIR [Levemir] 34 unit SQ HS 01/04/17 [History] Levothyroxine [Synthroid] 88 mcg PO DAILY 01/04/17 [History] Aspirin 81 mg PO DAILY #30 tab.chew 01/05/17 [Rx] GlipiZIDE [Glucotrol] 5 mg PO BIDWM #60 tablet 01/05/17 [Rx] Isosorbide MONOnitrate (24 HR) [Imdur] 30 mg PO DAILY #30 tab.er.24h 01/05/17 [ Rx] Lisinopril [Zestril] 2.5 mg PO DAILY #15 tablet 01/05/17 [Rx] Metformin HCl [Glucophage] 1,000 mg PO BIDWM #60 tablet 01/05/17 [Rx] Metoprolol [Lopressor] 25 mg PO BID #60 tablet 01/05/17 [Rx] Nitroglycerin [Nitrostat] 0.4 mg SL PRN PRN #30 tab.subl 01/05/17 [Rx] Allergies/Adverse Reactions: Allergies codeine Allergy (Verified 07/18/15 07:44) Hives Penicillins Allergy (Verified 07/18/15 07:44) Hives Procedures/tests Complete & Pending: Procedures Performed prior 72 hours Category Date Time Status NM lynette perf SPECT multi [NM] Routine Exams 01/04/17 16:20 Taken EV echocardiogram Routine Y 01/05/17 16:19 Completed SP pharm nuclear stress Routine Y 01/05/17 Completed Date of admission: 01/04/17 13:14 Primary care physician: Genaro Pérez Consults: 01/05/17 12:19 Consult to Cardiology [CONS] Routine Comment: Consulting Provider: Cardiology Anaid Reason for Consult: abnl stress Time Notified: 12:19 Call Completed: Yes Discharging clinician: Monserrat Quan Anticipated date of discharge: 01/05/17 - Patient Status Disposition: Home, Self-Care Condition: Fair Functional capacity at discharge: independent ambulation Overall status at discharge: patient is progressing back to baseline - Discharge Instructions Follow Up With: Genaro Pérez DO [Primary Care Provider] - 01/11/17 3:30 pm Tiffanie Oh DO [Partnered Physician] - 01/20/17 1:10 pm - Diet and Activity Activity: increase activity as tolerated Diet: diabetic diet, low fat, low cholesterol, low salt diet Hospital course: Ms. Garcia is a 81 year old female with past medical history of CAD status post stent, uncontrolled diabetes, uterine cancer status post hysterectomy, hyperlipidemia, hypothyroidism, cholecystectomy, hypertension. Patient presented to the emergency room for chief complaint headache and left-sided chest pain radiating to her left arm that has been intermittent over the past several months. Her family reports that she has been grabbing the left side of her chest and left arm occasionally for the last several months. Patient is stating her pain with her prior MO in 2014 has symptoms consistent with left arm pain that radiated across to her right arm. Patient also endorsed occasional lightheadedness. She denied shortness of breath or palpitations. She also endorses nausea with no vomiting. She denied increased pedal edema. Workup in the emergency department revealing mild leukocytosis and was otherwise unremarkable. Chest x-ray negative. No ECG changes. Troponins negative. Patient was admitted to the hospitalist service for further evaluation and management. Patient denied chest pain throughout this admission however she had intermittent headaches. Echocardiogram unremarkable with ejection fraction of 60% and mild diastolic dysfunction. Patient had a nuclear stress test that was abnormal and cardiology was brought on board. Patient was given the option of left heart catheter versus medical management however she chose medical management. Of note, patient saying that she has not taken any for her home medications for the past 6 months because she states that she feels as if her medication makes her feel worse. Her hemoglobin A1c is 10.1% as she has not been taking her glipizide or metformin at home. Her blood pressure is also uncontrolled upon presentation. She was started back on diabetes medications as well as beta aren, low-dose LUIS CARLOS inhibitor, aspirin, and Imdur was added to her regimen per cardiology. Her blood pressure was improved prior to discharge and her headache had subsided. She stated that she plans to be compliant with her medication regimen upon discharge. She was discharged home in stable condition with close outpatient follow-up recommended. ITS Impressions Chest X-Ray 01/04/17 10:56 IMPRESSION: 1. No acute cardiopulmonary disease. D/ / 01/04/2017 11:48:07 Rach Angel MD / elyse Interpreting Provider: Rach Angel MD Echocardiogram impressions: LVEF 60%. Normal left ventricular size and systolic function. There is evidence of mild diastolic dysfunction of the left ventricle. Normal right ventricular size and function. No significant valvular dysfunction. No pulmonary hypertension. Regadenoson nuclear stress test impression: Mild jesse-infarct ischemia involving the distal inferior wall and apex. Fixed defect involving the basal and mid inferior wall representing infarct. Pharmacologic ECG was negative for ischemia at the level of heart rate achieved. Gated ejection fraction equals 68 %. - Time Spent with Patient Total time spent providing and/or coordinating discharge services: - Constitutional Vitals: Temp Pulse Resp BP Pulse Ox 97.5 F L 79 14 158/81 93 L 01/05/17 15:20 01/05/17 15:20 01/05/17 15:20 01/05/17 15:20 01/05/17 15:20 General appearance: Present: A&O X 3, pleasant, no acute distress, answers questions appropriately - Head Head exam: Present: atraumatic, normocephalic - Eye Eye exam: Present: PERRL, conjuntiva pink, sclera anicteric Pupils: Present: PERRL - Neck Neck exam general surgery: Present: supple, trachea midline. Absent: lymphadenopathy - Respiratory Respiratory exam: Present: decreased breath sounds. Absent: accessory muscle use, rales, respiratory distress, rhonchi, wheezes - Cardiovascular Cardiovascular exam: Present: RRR, +S1, +S2. Absent: diastolic murmur, gallop, rubs, systolic murmur - GI/Abdominal GI/Abdominal exam: Present: normal bowel sounds, soft, no peritoneal signs. Absent: distended, tenderness - Extremities Exam Extremities exam: Present: warm, radial pulses palpable and symetrical. Absent : calf tenderness, cyanotic, pedal edema - Neurological Exam Neurological exam: Present: alert, CN II-XII intact, oriented X3, no focal deficits, strengths equal and symetr throughout. Absent: pronater drift, facial droop, speech deficit - Skin Skin exam: Present: dry, intact, normal color, warm
--- NOTE | 2017-01-05 16:24 | Electrocardiograph Report ---
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
== END 2017-01-05 17:10 | disposition home or self-care (01) ==
LOC: 3BNU 10:25 → EMEROO 10:25 → 3BNU 13:07
PROVIDERS: ADMIT Nurse Practitioner Family; ATTEND Nurse Practitioner Family

== ENCOUNTER 2019-02-20 19:07 | Observation (INO) ==
[2019-02-20] MEDS ORDERED: Aspirin 81 MG TAB.CHEW PO ONE (19:36)
--- NOTE | 2019-02-20 20:00 | Emergency Department Note ---
Disposition Clinical Impression: Chest pain Disposition: Still a Patient Condition: Fair Referrals: Genaro Pérez DO [Primary Care Provider] - Chest Pain HPI - General Chief Complaint: ED Chest Pain Stated Complaint: chest/left arm pain Time Seen by Provider: 02/20/19 19:18 Source: patient Limitations: no limitations Vital Signs Reviewed: Yes Nursing Notes Reviewed: Yes - History of Present Illness Severity scale (1-10): 6 - Related Data Home Medications Medication Instructions Recorded Confirmed Levothyroxine [Synthroid] 88 mcg PO QAM 01/04/17 01/17/19 Furosemide [Lasix] 40 mg PO PRN PRN 01/17/19 01/17/19 Insulin LISPRO [Humalog Kwikpen 5 unit SQ TIDWM 01/17/19 01/17/19 U-100] Potassium Chloride [Klor-Con 10] 10 meq PO DAILY 01/17/19 01/17/19 Previous Rx's Medication Instructions Recorded Nitroglycerin [Nitrostat] 0.4 mg SL PRN PRN #30 tab.subl 01/05/17 Insulin DETEMIR [Levemir Flextouch] 10 units SQ BID #1 unit 01/18/19 Metoprolol [Lopressor] 25 mg PO BID #60 tablet 01/18/19 Allergies Allergy/AdvReac Type Severity Reaction Status Date / Time codeine Allergy Hives Verified 01/17/19 10:25 Penicillins Allergy Hives Verified 01/17/19 10:25 Chest Pain PMH - Past Medical History Medical history: Reports: cancer, coronary artery disease, diabetes, hyperlipidemia, myocardial infarction, thyroid disease Surgical history: Reports: angioplasty/stent, cancer surgery (hysterectomy), cholecystectomy, hysterectomy Psychiatric history: Reports: no psych history - Social History Smoking Status: Never smoker Alcohol use: Reports: none Drug use: Reports: none Physical Exam - General Limitations: no limitations General appearance: alert, in no apparent distress Course Vital Signs Temperature 97.9 F 02/20/19 19:12 Pulse Rate 99 02/20/19 19:12 Respiratory Rate 18 02/20/19 19:12 Blood Pressure 164/87 02/20/19 19:12 O2 Sat by Pulse Oximetry 94 02/20/19 19:12 Temperature 97.9 F 02/20/19 19:12 Pulse Rate 99 02/20/19 19:12 Respiratory Rate 18 02/20/19 19:12 Blood Pressure 164/87 02/20/19 19:12 O2 Sat by Pulse Oximetry 94 02/20/19 19:12 Oxygen Delivery Oxygen Delivery Room Air Heart Score - Score History: Moderately Suspicious EKG: Non Specific repolarisation Disturbance Age: Greater than 65 Risk Factors: Equal/Greater than 3 risk factor or history of atherosclerotic disease Attestation Statement - Attestation Attestation: I have seen this patient with the resident physician, I have personally evaluated this patient. I had reviewed the chart and document dictation by the resident physician and aM in agreement with the information documented by the resident physician. Please see documentation by the resident physician for complete chart including past medical history, family medical history, review of systems, current history and physical and laboratory and imaging studies. I was present for all procedures, provided direct supervision for all procedures, was present for the entirety of all procedures and provided direct guidance during the procedures. Please see documentation by the resident physician for any procedures performed. Patient presented emergency department with chief complaint of left-sided should er pain started yesterday then moved into her chest today left sided chest pressure radiating now into her left shoulder and down her left arm with tingling in her left arm with some mild shortness of breath and generalized weakness, consistent with her prior history of coronary artery disease and her last heart attack. The patient states her pain was a 6 out of 10 until arrival is now a 0 out of 10. She denies any headache or jaw pain she denies pain or back she denies any tearing or ripping sensation she denies actual focal numbness or weakness but as above had some tingling in her left arm. She states this reminds her of exactly the same type symptoms she had when she had her last heart attack requiring stents which was about a year ago. The patient denies abdominal pain she denies vomiting or diarrhea she denies black or bloody stool she denies urinary changes. She denies any acute lower extremity edema. EKG was a normal sinus rhythm with no evidence of acute ischemia or dysrhythmia hyperkalemia, with stable Q waves and nonspecific ST abnormality in inferior leads unchanged from previous. Basic laboratory studies were ordered. The patient is currently chest pain-free she has already had aspirin. The patient has no symptoms suggestive of pulmonary embolism no pleuritic pain no recent surgery travel immobilization leg pain or leg swelling. She has symptoms consistent with her prior cardiac disease, and is now pain-free without tachycardia without hypoxia, nothing to suggest PE at this time. Patient will be admitted to the hospital after completion of her workup here in the emergency department for further evaluation and management of chest pain we will address any laboratory abnormalities as well.
--- NOTE | 2019-02-20 20:18 | Emergency Department Note ---
Disposition Clinical Impression: Chest pain, Diabetes mellitus, Coronary artery disease, Hypertension Disposition: Admitted As Inpatient Condition: Fair Time of Disposition: 22:43 Chest Pain HPI - General Chief Complaint: ED Chest Pain Stated Complaint: chest/left arm pain Time Seen by Provider: 02/20/19 19:18 Source: patient Limitations: no limitations Vital Signs Reviewed: Yes Nursing Notes Reviewed: Yes - History of Present Illness HPI Narrative: 83 yo female presents to the ED with the complaint of left arm and chest pain that started yesterday. She has a past medical history of IA and CAD with 5 sten ts, DM, and HTN. She states the left arm pain started yesterday and has moved to the left side of her chest. This feels like her last heart attack. She states her pain was a 6/10 in triage but is now a 0/10. She denies difficulty breathing but family states she appears to be breathing differently. She admits to some increased leg swelling of both legs without increased pain, she denies recent long travel or history of blood clot. She denies fevers, chills, increased cough or sputum production. Severity scale (1-10): 6 - Related Data Home Medications Medication Instructions Recorded Confirmed Levothyroxine [Synthroid] 88 mcg PO QAM 01/04/17 02/20/19 Furosemide [Lasix] 40 mg PO PRN PRN 01/17/19 02/20/19 Insulin LISPRO [Humalog Kwikpen 5 unit SQ TIDWM 01/17/19 01/17/19 U-100] Potassium Chloride [Klor-Con 10] 10 meq PO DAILY 01/17/19 02/20/19 Metoprolol [Lopressor] 12.5 mg PO BID 02/20/19 02/20/19 Previous Rx's Medication Instructions Recorded Insulin DETEMIR [Levemir Flextouch] 10 units SQ BID #1 unit 01/18/19 Allergies Allergy/AdvReac Type Severity Reaction Status Date / Time codeine Allergy Hives Verified 01/17/19 10:25 Penicillins Allergy Hives Verified 01/17/19 10:25 All systems ED: reviewed and negative except as stated. Review of Systems: As Per HPI Constitutional: Denies: fever, chills, weakness Eyes: Denies: vision change Cardiovascular: Reports: chest pain, edema. Denies: palpitations, dyspnea on exertion, syncope Respiratory: Denies: cough, dyspnea, wheezes Gastrointestinal: Reports: nausea. Denies: abdominal pain, vomiting, diarrhea Musculoskeletal: Denies: back pain, neck pain Integumentary: Denies: rash Neurological: Denies: headache, weakness Endocrine: Reports: fatigue Chest Pain PMH - Past Medical History Medical history: Reports: cancer, coronary artery disease, diabetes, hyperlipidemia, myocardial infarction, thyroid disease Surgical history: Reports: angioplasty/stent, cancer surgery (hysterectomy), cholecystectomy, hysterectomy Psychiatric history: Reports: no psych history - Social History Smoking Status: Never smoker Alcohol use: Reports: none Drug use: Reports: none Physical Exam - General Limitations: no limitations General appearance: alert, in no apparent distress - Head Head exam: atraumatic, normocephalic - Eye Eye exam: Present: normal appearance, PERRL, EOMI - ENT ENT exam: normal exam, normal oropharynx - Neck Neck exam: Present: normal inspection. Absent: tenderness, lymphadenopathy - Chest Chest inspection: Present: normal inspection. Absent: tenderness - Respiratory Respiratory exam: Present: normal lung sounds bilaterally - Cardiovascular Cardiovascular exam: Present: regular rate, normal rhythm - Abdominal Exam Abdominal exam: Present: soft, Non-Tender. Absent: distention, guarding, rebound, rigidity - Extremities Exam Extremities exam: Present: normal inspection, pedal edema (trace), other (homans sign negative). Absent: tenderness, calf tenderness - Neurological Exam Neurological exam: Present: alert, oriented X3, normal gait. Absent: motor sensory deficit - Psychiatric Psychiatric exam: Present: normal affect, normal mood - Skin Skin exam: Present: warm, dry, intact Course Vital Signs Temperature 97.9 F 02/20/19 19:12 Pulse Rate 99 02/20/19 19:12 Respiratory Rate 18 02/20/19 19:12 Blood Pressure 164/87 02/20/19 19:12 O2 Sat by Pulse Oximetry 94 02/20/19 19:12 Temperature 97.9 F 02/20/19 19:12 Pulse Rate 84 02/20/19 21:42 Respiratory Rate 20 02/20/19 21:42 Blood Pressure 147/78 02/20/19 21:42 O2 Sat by Pulse Oximetry 97 02/20/19 21:42 Oxygen Delivery Oxygen Delivery Room Air Chest Pain - MDM Narrative Medical decision making narrative: Patient presents with 1 day of left arm and chest pain concerning for ACS. Cardiac workup will be obtained. The patient does not have any risk factors for PE and is PERC negative. Aspirin has been ordered at this time. 2129 - patient's lab work and chest x-ray are unremarkable. EKG is unchanged from previous. The results of the patient's workup were told to her and she is agreeable with staying for further cardiac rule out. Hospitalist has been paged at this time. 2239 - Dr. Chase has accepted the patient for admission. - Medical Records Medical records reviewed: Yes I reviewed the patient's medical records. - Lab Data Lab results reviewed: Yes I reviewed the patient's lab results. Result diagrams: 02/20/19 20:22 02/20/19 20:22 Lab Results 02/20/19 02/20/19 02/20/19 Range/Units 20:22 20:22 20:22 WBC 9.5 (4.3-11.1) K/mcL RBC 5.01 H (3.82-4.97) M/mcL Hgb 14.9 (11.5-15.4) g/dL Hct 44.8 (35.3-44.9) % MCV 89.4 (83.0-100.0) fL MCH 29.7 (28.0-33.3) pg MCHC 33.3 (31.6-35.5) g/dL RDW 13.8 (11.5-14.5) % Plt Count 222 (140-400) K/mcL MPV 11.1 (9.4-12.4) fL Immature Gran % 0.2 (0-4) % Seg Neutrophils % 57.5 % Lymphocytes % 31.6 % Monocytes % 6.8 % Eosinophils % 3.4 % Basophils % 0.5 % Neutrophils # 5.5 (1.6-8.9) K/mcL Lymphocytes # 3.0 (0.6-4.6) K/mcL Monocytes # 0.6 (0.0-1.3) K/mcL Eosinophils # 0.3 (0.0-0.6) K/mcL Basophils # 0.1 (0.0-0.2) K/mcL Sodium 133 L (136-145) mEq/L Potassium 4.1 (3.5-5.1) mEq/L Chloride 102 (98-107) mEq/L Carbon Dioxide 27 (23-29) mEq/L BUN 25 H (8-23) mg/dL Creatinine 1.02 (0.60-1.20) mg/dL Est GFR ( Amer) > 60 (> 60) Est GFR (Non-Af Amer) 52 L (> 60) BUN/Creatinine Ratio 25 (6-26) Glucose 356 H (70-105) mg/dL Calculated Osmolality 295 (280-300) Calcium 8.9 (8.6-10.3) mg/dL Troponin I < 0.03 (< 0.04) ng/mL B-Natriuretic Peptide 72 (Less than 100) pg/mL - Radiology Data Radiology results reviewed: Yes I reviewed the patient's radiology results. - EKG Data EKG attestation: Yes I reviewed and interpreted this EKG. EKG results narrative: EKG obtained at 19:26 on 02/20/2019 Sinus rhythm with a heart rate of 96 bpm, MS interval 160, QRS duration 93, QT 347, QTC 439. 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 No acute ST elevation or depression. No T-wave abnormalities. Unchanged from previous EKGs. Heart Score - Score History: Moderately Suspicious EKG: Normal Age: Greater than 65 Risk Factors: Equal/Greater than 3 risk factor or history of atherosclerotic disease Troponin: Less than normal limit HEART Score Total: 5 Attestation Statement - Attestation Attestation: I have seen this patient with the resident physician, I have personally evaluated this patient. I had reviewed the chart and document dictation by the resident physician and aM in agreement with the information documented by the resident physician. Please see documentation by the resident physician for complete chart including past medical history, family medical history, review of systems, current history and physical and laboratory and imaging studies. I was present for all procedures, provided direct supervision for all pr ocedures, was present for the entirety of all procedures and provided direct guidance during the procedures. Please see documentation by the resident physician for any procedures performed.
[2019-02-20 20:39] LABS: Basophils # 0.1 K/mcL (0.0-0.2); Basophils % 0.5 %; Eosinophils # 0.3 K/mcL (0.0-0.6); Eosinophils % 3.4 %; Hematocrit 44.8 % (35.3-44.9); Hemoglobin 14.9 g/dL (11.5-15.4); Immature Granulocytes % 0.2 % (0-4); Lymphocytes % 31.6 %; Mean Corpuscular HGB Conc 33.3 g/dL (31.6-35.5); Mean Corpuscular Hemoglobin 29.7 pg (28.0-33.3); Mean Corpuscular Volume 89.4 fL (83.0-100.0); Mean Platelet Volume 11.1 fL (9.4-12.4); Monocytes # 0.6 K/mcL (0.0-1.3); Monocytes % 6.8 %; Neutrophils # 5.5 K/mcL (1.6-8.9); Platelet Count 222 K/mcL (140-400); Red Blood Count 5.01 M/mcL (3.82-4.97); Red Cell Distribution Width 13.8 % (11.5-14.5); Segmented Neutrophils % 57.5 %
[2019-02-20 21:02] LABS: BUN/Creatinine Ratio 25 (6-26); Blood Urea Nitrogen 25 mg/dL (8-23); Calcium 8.9 mg/dL (8.6-10.3); Carbon Dioxide 27 mEq/L (23-29); Chloride 102 mEq/L (98-107); Glucose 356 mg/dL (70-105); Osmolality,Calculated 295 (280-300); Potassium 4.1 mEq/L (3.5-5.1); Sodium 133 mEq/L (136-145); Troponin I < 0.03 ng/mL (< 0.04); eGFR For Non-African Americans 52 (> 60)
--- NOTE | 2019-02-20 23:41 | Internal Med History&Physical ---
<Trae Thompson S - Last Filed: 02/21/19 00:06> Date of Encounter: 02/21/19 Time of Encounter: 00:06 Internal Medicine - H&P: HPI Chief complaint: chest pain Admitted From: Home Plans for Post Hospital Care: Home History of present illness: Ms. Garcia is a 83 year old female with PMH CAD s/p stent x5, MN, HTN, T2DM, and morbid obesity. She is here with the chief complaint of chest pain and left arm pain. It started 2 days ago and she states she had on and off pain that was similar to her previous AMI. She stated that her left arm had numbness and tingling down it and that her chest had a dull, substernal pressure. She states that rest made it better. She didn't say anything in particular made it worse. She didn't have any nitroglycerin to take at home. She denies any assoc fevers/chills, diaphoresis, n/v/d, or abdominal pain. She denies new onset edema or rapid weight gain/fluid retention. Her SOB is at baseline, she does have a hard time doing her ADL's due to SOB. She also reported that this morning she felt very hypoglycemic so she didn't take her insulin and ate a lot of carbohydrates instead. She now feels that her sugar is getting too high. By the time she got to the ER and was evaluated, her chest pain resolved. She had a normal BNP and troponin in the ER. EKG negative for acute ischemia. Due to concerning history and multiple risk factors, she will be admitted for further evaluation and chest pain workup. Past Med Surg Social Fam HX - Past Medical History Medical history: cancer, coronary artery disease, diabetes, hyperlipidemia, myocardial infarction, thyroid disease Additional medical history: uterine cancer Psychiatric history: no psych history - Past Surgical History Surgical History: cholecystectomy, hysterectomy Additional surgical history: cardiac stent x 5 - Social History Smoking Status: Never smoker Smokeless Tobacco Status: No Alcohol use: none Drug use: none - Family History Father Living Status: Daughter Living Status: Still Living Mother Living Status: Hx Family Cardiac Disorders: Yes (Congestive heart failure) Internal Medicine - H&P: Meds Levothyroxine [Synthroid] 88 mcg PO QAM 01/04/17 [History] Furosemide [Lasix] 40 mg PO PRN PRN 01/17/19 [History] Insulin LISPRO [Humalog Kwikpen U-100] 5 unit SQ TIDWM 01/17/19 [History] Potassium Chloride [Klor-Con 10] 10 meq PO DAILY 01/17/19 [History] Insulin DETEMIR [Levemir Flextouch] 10 units SQ BID #1 unit 01/18/19 [Rx] Metoprolol [Lopressor] 12.5 mg PO BID 02/20/19 [History] Allergy/AdvReac Type Severity Reaction Status Date / Time codeine Allergy Hives Verified 01/17/19 10:25 Penicillins Allergy Hives Verified 01/17/19 10:25 All Systems PM: A 10-system review of systems was performed and is negative for pertinent findings except as documented above in the HPI. - Constitutional Constitutional: lethargy, weakness, no chills, no fever(s) - EENT Eyes: no blurry vision, no change in vision Ears: no tinnitus - Cardiovascular Cardiovascular ROS IM: chest pain, dyspnea, dyspnea on exertion, palpitations, no irregular heart rhythm, no lightheadedness, no orthopnea, no paroxysmal nocturnal dyspnea - Respiratory Respiratory: dyspnea, dyspnea on exertion, no cough, no chest congestion - Gastrointestinal Gastrointestinal: no abdominal pain, no diarrhea, no nausea, no vomiting - Genitourinary Genitourinary: no dysuria, no hematuria - Musculoskeletal Musculoskeletal ROS IM: back pain, numbness, tingling - Integumentary Integumentary IM: no rash, no sores, no unusual bruising - Psychiatric Psychiatric: no anxiety, no confusion - Endocrine Endocrine IM: fatigue - Hematologic/Lymphatic Hematologic/Lymphatic: no easy bleeding, no easy bruising - Constitutional Vitals: Temp Pulse Resp BP Pulse Ox 97.9 F 75 15 152/83 96 02/20/19 23:20 02/20/19 23:20 02/20/19 23:20 02/20/19 23:20 02/20/19 23:20 General appearance: Present: cooperative, A&O X 3, morbidly obese, pleasant Exam: General - aox3, laying in bed quietly, no acute distress, pleasant heent - MMM, NCAT eyes - no scleral icterus cardio - rrr, s1s2, cta, no mrg lungs - ctab, no wheeze/rhonchi/rales, not in respiratory distress abd - obese, soft, nontender, no rebound or guarding extremities - moves all extremities equally, strength 5/5, minimal edema of the ankles bilaterally neuro- no fnd, sensation intact psych - normal affect, normal mood skin - warm, dry, intact Internal Med - H&P Results - Labs CBC & Chem 7: 02/20/19 20:22 02/20/19 20:22 Labs: Short CBC 02/20/19 Range/Units 20:22 WBC 9.5 (4.3-11.1) K/mcL Hgb 14.9 (11.5-15.4) g/dL Hct 44.8 (35.3-44.9) % Plt Count 222 (140-400) K/mcL Neutrophils # 5.5 (1.6-8.9) K/mcL BMP 02/20/19 20:22 Sodium 133 L Potassium 4.1 Chloride 102 Carbon Dioxide 27 BUN 25 H Creatinine 1.02 Glucose 356 H Calcium 8.9 Cardiac Enzymes 02/20/19 Range/Units 20:22 Troponin I < 0.03 (< 0.04) ng/mL - Impressions ITS Impressions Chest X-Ray 02/20/19 19:18 IMPRESSION: Negative portable study. D/ / Shazia Dickey Cha, MD / Shazia Dickey Cha, MD Interpreting Provider: Shazia Dickey Cha, MD - Assessment and Plan (1) Hypothyroidism Current Visit: No Status: Chronic Assessment and plan: On synthroid. Continue home medication. Qualifiers: Hypothyroidism type: acquired Qualified Code(s): E03.9 - Hypothyroidism, unspecified (2) Coronary artery disease Current Visit: No Status: Chronic Assessment and plan: Pt with hx of CAD, s/p 5 stents - on home BB - start on ASA, statin and lisinopril daily Qualifiers: Coronary Disease-Associated Artery/Lesion type: [place] artery [place] vs. transplanted heart: [place] heart Associated angina: with stable angina Qualified Code(s): I25.118 - Atherosclerotic heart disease of [place] coronary artery with other forms of angina pectoris (3) Chest pain Current Visit: Yes Status: Resolved Assessment and plan: Pt presented with 2 day hx of chest pain, states similar to previous heart attacks. Substernal, relieved by rest. See plan as above for plan. Qualifiers: Chest pain type: other chest pain Qualified Code(s): R07.89 - Other chest pain; R07.8 - Other chest pain (4) Type 2 diabetes mellitus Current Visit: No Status: Chronic Assessment and plan: Pt is an uncontrolled t2dm. Hold home insulin. Give 20U levemir tonight. Levemir 10U BID starting in AM. MDSS. ADA/cardiac diet. Acchuchecks. Qualifiers: Diabetes mellitus terminal gauger insulin use: with terminal gauger use Diabetes mellitus complication status: with unspecified complications Qualified Code(s): E11.8 - Type 2 diabetes mellitus with unspecified complications; Z79.4 - longterm (current) use of insulin (5) Hypertension Current Visit: No Status: Chronic Assessment and plan: Chronic, continue home rx, on beta aren. Start lisinopril. (6) DVT prophylaxis Current Visit: No Status: Acute Assessment and plan: sq heparin (7) Morbid obesity with BMI of 40.0-44.9, adult Current Visit: No Status: Chronic Assessment and plan: pt with BMI 42.1 counsled. (8) CHF (congestive heart failure) Current Visit: Yes Status: Acute Assessment and plan: Ptw/ known hx of diastolic CHF presented with 2 day hx of CP/left arm numbness and pain - has had stent x 5 - pt now states her chest pain has completely resolved, as has arm pain/numbness - not in acute exacerbation Previous ECHO from 12/2016: - LVEF 60%. - Normal left ventricular size and systolic function. - There is evidence of mild diastolic dysfunction of the left ventricle. - Normal right ventricular size and function, no significant valvular dysfunction, no pulmonary hypertension Pt had an acute MN in 2014, cath report: - Patient had successful PTCA/Drug-Eluting Stent placement in the distal RCA, RPDA. - Patent mid LAD stent. - Patent mid RCA stents with distal RCA in stent restenosis and heavy thrombus burden (the culprit lesion). - The left ventricle is normal and has mild inferior wall hypokinesis, EF 60% Stress test in 12/2016 - mild jesse-infarct ischemia of distal inferior wall and apex - fixed defect involving the basal and mid inferior wall representing infarct - pharmacologic EKG (-) for ischemia at level HR acheived - gated EF 68% Troponin negative x 1 in the ER EKG negative for acute ischemia or ST deviation BMP 72 Plan: - consult to cardiology will make NPO at midnight, 0400 PT/INR in case of intervention - troponin x 3 - strict I&O - daily weights - fluid restriction - continue lasix PO and beta aren daily - ECHO pending - start on aspirin 81mg daily, lisinopril, and a statin - FEN: cardiac/ADA diet - DVT prophylaxis: sq heparin - dispo: cardiac workup, likely to return home after workup Qualifiers: Heart failure type: diastolic Heart failure chronicity: chronic Qualified Code(s): I50.32 - Chronic diastolic (congestive) heart failure - Time Spent With Patient Total time spent is greater than 50% in coordination of care (as documented) at patient's floor/unit and/or counseling patient: 25 - 35 minutes <Tiffanie Stringer - Last Filed: 02/21/19 00:50> Date of Encounter: 02/21/19 Time of Encounter: 00:30 Internal Medicine - H&P: HPI History of present illness: Ms. Garcia is a 83 year old female All Systems PM: A 10-system review of systems was performed and is negative for pertinent findings except as documented above in the HPI. - Constitutional Vitals: Temp Pulse Resp BP Pulse Ox 97.9 F 75 15 152/83 96 02/20/19 23:20 02/20/19 23:20 02/20/19 23:20 02/20/19 23:20 02/20/19 23:20 Internal Med - H&P Results - Labs CBC & Chem 7: 02/21/19 00:34 02/20/19 20:22 Labs: Short CBC 02/20/19 02/21/19 Range/Units 20:22 00:34 WBC 9.5 9.0 (4.3-11.1) K/mcL Hgb 14.9 13.8 (11.5-15.4) g/dL Hct 44.8 41.7 (35.3-44.9) % Plt Count 222 264 (140-400) K/mcL Neutrophils # 5.5 (1.6-8.9) K/mcL BMP 02/20/19 20:22 Sodium 133 L Potassium 4.1 Chloride 102 Carbon Dioxide 27 BUN 25 H Creatinine 1.02 Glucose 356 H Calcium 8.9 Cardiac Enzymes 02/20/19 Range/Units 20:22 Troponin I < 0.03 (< 0.04) ng/mL - Impressions ITS Impressions Chest X-Ray 02/20/19 19:18 IMPRESSION: Negative portable study. D/ / Shazia Dickey Cha, MD / Shazia Dickey Cha, MD Interpreting Provider: Shazia Dickey Cha, MD - Assessment and Plan (1) Coronary artery disease Current Visit: No Status: Chronic Qualifiers: Coronary Disease-Associated Artery/Lesion type: [place] artery [place] vs. transplanted heart: [place] heart Associated angina: with stable angina Qualified Code(s): I25.118 - Atherosclerotic heart disease of [place] coronary artery with other forms of angina pectoris (2) Chest pain Current Visit: Yes Status: Resolved Qualifiers: Chest pain type: other chest pain Qualified Code(s): R07.89 - Other chest pain; R07.8 - Other chest pain (3) Type 2 diabetes mellitus Current Visit: No Status: Chronic Qualifiers: Diabetes mellitus terminal gauger insulin use: with group home use Diabetes m ellitus complication status: with unspecified complications Qualified Code(s): E11.8 - Type 2 diabetes mellitus with unspecified complications; Z79.4 - longterm (current) use of insulin (4) Hypertension Current Visit: No Status: Chronic Qualifiers: Hypertension type: essential hypertension (5) DVT prophylaxis Current Visit: No Status: Acute (6) Morbid obesity with BMI of 40.0-44.9, adult Current Visit: No Status: Chronic (7) Hypothyroidism Current Visit: No Status: Chronic Qualifiers: Hypothyroidism type: acquired Qualified Code(s): E03.9 - Hypothyroidism, unspecified (8) CHF (congestive heart failure) Current Visit: Yes Status: Acute Qualifiers: Heart failure type: diastolic Heart failure chronicity: chronic Qualified Code(s): I50.32 - Chronic diastolic (congestive) heart failure - Time Spent With Patient Total time spent is greater than 50% in coordination of care (as documented) at patient's floor/unit and/or counseling patient: - Attending Attestation I saw evaluated and examined this patient and my medical decision-making was reviewed with the Resident Physician, Trae Thompson. I agree with the documented findings, review of systems, past medical, surgical, social and family histories, disposition and treatment plan as described except to any changes set forth below. We independently had [id number] contact with the patient. 82-year-old female patient with history of coronary artery disease with multiple stents who presented to the ER with complaints of chest pain. She has been having off-and-on chest pain but yesterday afternoon she began to develop pain radiating to her left Arm and to her back. The pain resolved by the time she came to the ER. In the ER she was given aspirin. She denies any fevers or chills. No nausea or vomiting. She denies any shortness of breath but has noted slight worsening of swelling in her lower extremities. No recent cardiac workup. She has had stents placed in 2015. She had a stress test in 2017 which showed some jesse-infarct ischemia. She was recommended medical management. Patient is not on aspirin or Plavix and was reportedly taken off this medications. No recent bleeding. General: Patient is alert, mild distress, oriented x 3 morbidly obese ENT: Mucous membranes moist Respiratory: Good respiratory effort. Normal breath sounds. No wheezing or crackles. Cardiovascular: Regular rate and rhythm. s1 and s2 normal No clicks, rubs, gallops, or murmurs. No pedal edema Abdomen: Abdomen is soft, nontender. Bowel sounds are present Musculoskeletal: Spontaneously moving all extremities Skin: warm, dry, intact. Neuro: Alert oriented x 3 normal cranial nerves, no focal deficits EKG shows sinus rhythm without any acute ST segment changes. Precordial chest pain: Given her history of coronary artery disease and stents, would monitor in the hospital with telemetry, trend troponins. Consult cardiology. Obtain 2-D echocardiogram. Chronic diastolic congestive heart failure: Per last 2-D echocardiogram patient ID of 60%. Will obtain 2-D echocardiogram. Continue Lasix. Monitor input and output. Diabetes mellitus type 2: Blood sugars are elevated. Patient apparently did not take her insulin as prescribed as her blood sugar was low this morning. Monitor blood sugars. Sliding scale insulin. DVT prophylaxis with subcutaneous heparin
[2019-02-21] MEDS ORDERED: Naloxone 0.4 MG/ML INJ IVP PRN
[2019-02-21] MEDS ORDERED: Insulin DETEMIR 100 UNIT/ML X5UNITS SQ ONE (00:02)
[2019-02-21] MEDS ORDERED: D5% in Water 1,000 ML IVC PRN (00:04)
[2019-02-21] MEDS ORDERED: *HR* Dextrose 50 % in Water (Syg) 50 ML SYRINGE IVP PRN (00:04)
[2019-02-21] MEDS ORDERED: Dextrose Gel 15 GM/37.5 ML TUBE PO PRN ×2 (00:04)
[2019-02-21] MEDS ORDERED: Furosemide 40 MG TABLET PO PRN (00:05)
[2019-02-21] MEDS ORDERED: Nitroglycerin 0.4 MG TAB.SUBL SL PRN (00:24)
[2019-02-21] MEDS ORDERED: *HR* Metoprolol 5 MG/5 ML VIAL IVP PRN (00:39)
[2019-02-21 00:45] LABS: Hematocrit 41.7 % (35.3-44.9); Hemoglobin 13.8 g/dL (11.5-15.4); Mean Corpuscular HGB Conc 33.1 g/dL (31.6-35.5); Mean Corpuscular Hemoglobin 28.9 pg (28.0-33.3); Mean Corpuscular Volume 87.4 fL (83.0-100.0); Mean Platelet Volume 10.8 fL (9.4-12.4); Platelet Count 264 K/mcL (140-400); Red Blood Count 4.77 M/mcL (3.82-4.97); Red Cell Distribution Width 13.6 % (11.5-14.5)
[2019-02-21 00:53] LABS: Prothrombin Time 10.8 Seconds (9.4-12.1)
[2019-02-21 01:03] LABS: BUN/Creatinine Ratio 25 (6-26); Blood Urea Nitrogen 24 mg/dL (8-23); Calcium 8.7 mg/dL (8.6-10.3); Carbon Dioxide 31 mEq/L (23-29); Chloride 101 mEq/L (98-107); Glucose 266 mg/dL (70-105); Osmolality,Calculated 293 (280-300); Potassium 4.1 mEq/L (3.5-5.1); Sodium 135 mEq/L (136-145); eGFR For Non-African Americans 55 (> 60)
[2019-02-21] MEDS ORDERED: *HR* Heparin 5,000 UNIT/ML VIAL SQ SCH (06:00)
[2019-02-21] MEDS: Insulin LISPRO 300 UNITS/3 ML VIAL SQ SCH ×2 (07:54→12:18)
[2019-02-21] MEDS ORDERED: Perflutren Lipid Microsphere 1.3 ML in 0.9 % Sodium Chloride 8.7 ML IVP ONE (08:32)
[2019-02-21] MEDS ORDERED: Aspirin 81 MG TAB.CHEW PO SCH (09:00)
[2019-02-21] MEDS ORDERED: Furosemide 40 MG TABLET PO SCH (09:00)
[2019-02-21] MEDS ORDERED: Insulin DETEMIR 100 UNIT/ML X5UNITS SQ SCH (09:00)
--- NOTE | 2019-02-21 09:31 | Cardiology Consult Note ---
Date of Encounter: 02/21/19 Time of Encounter: 09:27 Assessment and Plan (1) Chest pain Current Visit: Yes Status: Resolved C/o left arm pain at rest for 2 days. Not the same pain as IL. H/o inferior STEMI and PCI RCA and PDA in 2014. 99% stenosed OM remaining . Mildly abnormal stress test in 2016 showing infarct with jesse-infarct ischemia in 2016. Pt opted for medical management. This admission troponin is negative x3. EKG shows NSR with no acute ST changes. Noted patient is not on GDMT and poor cardiology f/u. Echo pending. I discussed further ischemic evaluation with stress test or LHC verses medical management. Patient prefers medical management and declines stress. Recommend adding asa, statin and imdur. Continue lopressor. Qualifiers: Chest pain type: other chest pain Qualified Code(s): R07.89 - Other chest pain; R07.8 - Other chest pain (2) Coronary artery disease Current Visit: No Status: Chronic H/o IL and multiple prior PCI. Most recent LHC for STEMI in 2014. At that time she received PCI to her RCA and PDA. There was 99% stenosis in the OM remaining. Stress test with mild jesse-infarct ischemia in DECEMBER 2016. TTE 12/2016-LVEF 60%. No significant valvular dysfunction. No pulmonary hypertension. Patient stopped taking asa and plavix previously. Restart asa and statin. Add imdur, Continue lopressor. Healthy heart diet. Risk factor modification. Qualifiers: Coronary Disease-Associated Artery/Lesion type: [place] artery [place] vs. transplanted heart: [place] heart Associated angina: with stable angina Qualified Code(s): I25.118 - Atherosclerotic heart disease of [place] coronary artery with other forms of angina pectoris (3) Hypertension Current Visit: No Status: Chronic B/p elevated on admit. Continue lopressor. Start imdur. Increase lisinopril if needed. Low sodium diet. Qualifiers: Hypertension type: essential hypertension Qualified Code(s): I10 - Essential (primary) hypertension (4) Morbid obesity with BMI of 40.0-44.9, adult Current Visit: No Status: Chronic Discussion w patient/family: The assessment and plan as outlined above was discussed with the patient and/or family members who expressed understanding and agreement. All questions were answered. Thank you for involving us in the care of your patient. Please call with any questions. History of Present Illness Consult date: 02/21/18 Requesting physician: Trae Thompson Consult reason: Chest pain Chief complaint: left arm pain and tingling in her fingers History of present illness: Ms. Garcia is a 83 year old female with past medical history significant for IL and prior PCI, HTN, DM, obesity, and non-compliance. She presented with the c/o intermittent left arm pain for 2 days. Pain occurs at rest per patient. Denies chest pain, SOB, palpitation, or dizziness. Admits to intermittent BLE edema and takes PRN lasix. The pain is not like her previous IL in 2015. States with IL she had bilateral arm pain and back pain. On my exam today she denies chest pain or arm pain. She does not follow with cardiology currently. Currently not on GDMT for her CAD. She states she was told she did not need to take these me dications anymore. Past Med Surg Social Fam HX - Past Medical History Medical history: cancer, coronary artery disease, diabetes, hyperlipidemia, myocardial infarction, thyroid disease Additional medical history: uterine cancer Psychiatric history: no psych history - Past Surgical History Surgical History: cholecystectomy, hysterectomy Additional surgical history: cardiac stent x 5 - Social History Smoking Status: Never smoker Smokeless Tobacco Status: No Alcohol use: none Drug use: none - Family History Father Living Status: Daughter Living Status: Still Living Mother Living Status: Hx Family Cardiac Disorders: Yes (Congestive heart failure) Medications and Allergies Levothyroxine [Synthroid] 88 mcg PO QAM 01/04/17 [History] Furosemide [Lasix] 40 mg PO PRN PRN 01/17/19 [History] Insulin LISPRO [Humalog Kwikpen U-100] 5 unit SQ TIDWM 01/17/19 [History] Potassium Chloride [Klor-Con 10] 10 meq PO DAILY 01/17/19 [History] Insulin DETEMIR [Levemir Flextouch] 10 units SQ BID #1 unit 01/18/19 [Rx] Metoprolol [Lopressor] 12.5 mg PO BID 02/20/19 [History] Allergy/AdvReac Type Severity Reaction Status Date / Time codeine Allergy Hives Verified 01/17/19 10:25 Penicillins Allergy Hives Verified 01/17/19 10:25 All Systems Review: The remainder of the systems were reviewed and are negative Physical Examination Vital Signs, Last 4 Hours Temp Pulse Resp BP Pulse Ox 02/21/19 05:52 98.0 F 76 15 145/79 94 General: Conversant, No Apparent Distress HEENT: Atraumatic, Normocephaly, Mucus Membranes Moist Neck: No JVD, Normal carotid pulses Cardiac: Reg Rate and Rhythm, Normal S1 and S2, No Murmur Lungs: Normal Breath Sounds, No Wheeze, Rales, Rhonchi Neuro: Alert and responsive, No focal deficits noted Abdomen: Soft, Non-Tender Skin: No rashes noted on visualized skin Musculoskeletal: No Chest Wall Tenderness Extremities: No Clubbing, No Cyanosis, No Edema, Normal Pulses Results 02/21/19 00:34 02/21/19 00:34 Lab Results 02/20/19 02/20/19 02/20/19 20:22 20:22 20:22 WBC 9.5 Hgb 14.9 Hct 44.8 Plt Count 222 INR Sodium 133 L Potassium 4.1 Chloride 102 Carbon Dioxide 27 BUN 25 H Creatinine 1.02 Glucose 356 H Calcium 8.9 Magnesium Troponin I < 0.03 B-Natriuretic Peptide 72 02/21/19 02/21/19 02/21/19 00:34 00:34 00:34 WBC 9.0 Hgb 13.8 Hct 41.7 Plt Count 264 INR Sodium 135 L Potassium 4.1 Chloride 101 Carbon Dioxide 31 H BUN 24 H Creatinine 0.97 Glucose 266 H Calcium 8.7 Magnesium 2.0 Troponin I < 0.03 B-Natriuretic Peptide 02/21/19 02/21/19 00:34 06:21 WBC Hgb Hct Plt Count INR 1.0 Sodium Potassium Chloride Carbon Dioxide BUN Creatinine Glucose Calcium Magnesium Troponin I < 0.03 B-Natriuretic Peptide - Imaging and Cardiology Echo: pending, report reviewed Cardiac cath: pending, report reviewed - EKG Interpretation EKG results cardiology: personally reviewed Consult Discharge Plan - Plan Referrals: Genaro Pérez DO [Primary Care Provider] -
[2019-02-21] MEDS ORDERED: Isosorbide MONOnitrate (24 HR) 30 MG TAB.ER.24H PO SCH (11:00)
--- NOTE | 2019-02-21 11:37 | Electrocardiograph Report ---
[address] [address] Test Date: 2019-02-20 Pat Name: Hortencia Garcia Department: [id number] Room: 3A Gender: F [employer] Supervisor: : [id number] Requested By: Marilee Sheets Order Number: [id number] Reading MD: Enmanuel Faria Measurements Intervals [place] Rate: 96 P: 31 RI: 168 QRS: 45 QRSD: 93 T: 5 QT: 347 QTc: 439 Interpretive Statements Sinus rhythm low voltage Electronically Signed On 02-21-2019 11:35:53 EDT by Enmanuel Faria
[2019-02-21 14:20] VITALS: BP 118/65
--- NOTE | 2019-02-21 14:55 | Discharge Summary ---
- NOTES TO OUTPATIENT PROVIDER Notes to Outpatient Provider: 1. Added ASA, imdur to home meds per cardio recommendations Date of Encounter: 02/21/19 Time of Encounter: 13:00 - Discharge Diagnosis (1) Coronary artery disease Priority: Primary Status: Chronic Qualifiers: Coronary Disease-Associated Artery/Lesion type: cheesh-na artery [place] vs. 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 Diabetes mellitus complication status: with unspecified complications Qualified Code(s): E11.8 - Type 2 diabetes mellitus with unspecified complications; Z79.4 - FDC (current) use of insulin (4) Hypertension Priority: Secondary Status: Chronic Qualifiers: Hypertension type: essential hypertension (5) DVT prophylaxis Priority: Secondary Status: Acute (6) Morbid obesity with BMI of 40.0-44.9, adult Priority: Secondary Status: Chronic (7) Hypothyroidism Priority: Secondary Status: Chronic Qualifiers: Hypothyroidism type: acquired Qualified Code(s): E03.9 - Hypothyroidism, unspecified (8) CHF (congestive heart failure) Priority: Secondary Status: Acute Qualifiers: Heart failure type: diastolic Heart failure chronicity: chronic Qualified Code(s): I50.32 - Chronic diastolic (congestive) heart failure Hospital course: Ms. Garcia is a 83 year old female present to ER for chest pain. History of CAD S/P stent. Patient was admitted for chest pain rule out ACS. Patient's chest pain resolved spontaneously. Patient is totally pain-free when I saw her. 3 sets of troponin negative. EKG unremarkable. Chest x-ray unremarkable. Echocardiogram has been done, LVEF is normal. Cardiology consult saw patient, patient prefer medical management. Aspirin and Imdur added to home medication. I have seen and examined the patient today. Patient feels fine, no chest pain/shortness of breath/nausea/diaphoresis. Denies left arm pain or numbness. Vitals are stable. Will DC home and follow-up with PCP as outpatient. Discharge discussed with: patient - Time Spent with Patient Total time spent providing and/or coordinating discharge services: 25 minutes Time spent: Less than 30 minutes - Discharge Medications Prescriptions: New Isosorbide MONOnitrate (24 HR) [Imdur] 30 mg PO DAILY 30 Days #30 tab.er.24h Nitroglycerin 0.4 mg SL Q5MPRN PRN #24 tab.subl PRN Reason: Chest Pain Continued Furosemide [Lasix] 40 mg PO DAILY Insulin LISPRO [Humalog Kwikpen U-100] 5 unit SQ QPM Potassium Chloride [Klor-Con 10] 10 meq PO DAILY Metoprolol [Lopressor] 12.5 mg PO BID glipiZIDE [Glucotrol] 5 mg PO DAILY Insulin DETEMIR [Levemir Flextouch] 74 units SQ DAILY Levothyroxine Sodium [Levoxyl] 112 mcg PO QAM Atorvastatin [Lipitor] 80 mg PO HS Betamethasone Nicki 0.1% Crm 1 appl TP DAILY Home Medications: Furosemide [Lasix] 40 mg PO DAILY 01/17/19 [History] Insulin LISPRO [Humalog Kwikpen U-100] 5 unit SQ QPM 01/17/19 [History] Potassium Chloride [Klor-Con 10] 10 meq PO DAILY 01/17/19 [History] Metoprolol [Lopressor] 12.5 mg PO BID 02/20/19 [History] Aspirin Enteric Coated [Aspirin EC] 81 mg PO DAILY 60 Days #60 tablet. 02/21/19 [Rx] Atorvastatin [Lipitor] 80 mg PO HS 02/21/19 [History] Betamethasone Nicki 0.1% Crm 1 appl TP DAILY 02/21/19 [History] Insulin DETEMIR [Levemir Flextouch] 74 units SQ DAILY 02/21/19 [History] Isosorbide MONOnitrate (24 HR) [Imdur] 30 mg PO DAILY 30 Days #30 tab.er.24h 02/21/19 [Rx] Levothyroxine Sodium [Levoxyl] 112 mcg PO QAM 02/21/19 [History] Nitroglycerin 0.4 mg SL Q5MPRN PRN #24 tab.subl 02/21/19 [Rx] glipiZIDE [Glucotrol] 5 mg PO DAILY 02/21/19 [History] Allergies/Adverse Reactions: Allergy/AdvReac Type Severity Reaction Status Date / Time codeine Allergy Hives Verified 02/21/19 13:14 Penicillins Allergy Hives Verified 02/21/19 13:14 Date of admission: 02/20/19 22:44 Primary care physician: Genaro Pérez Consults: 02/21/19 00:22 Consult to Cardiology [CONS] Routine Comment: Consulting Provider: Cardiology Anaid Reason for Consult: chest pain, hx of 5 stents Call Completed: No 02/21/19 00:26 Consult to Physical Therapy [CONS] Routine Comment: Evaluate, develop and implement POC Reason for Consult: ptot eval Does patient have active BEDREST order?: No Is patient medically & hemodynamically stable?: Yes Patient assessed for mobility or mobilized this visit?: No 02/21/19 10:03 Consult to Nurse Navigator [CONS] Routine Comment: chf Discharging clinician: Dulce Meléndez Anticipated date of discharge: 02/21/19 - Constitutional Vitals: Temp Pulse Resp BP Pulse Ox 97.7 F 81 15 118/65 93 02/21/19 14:15 02/21/19 14:15 02/21/19 14:15 02/21/19 14:15 02/21/19 14:15 General appearance: Present: cooperative, A&O X 3, morbidly obese, pleasant Exam: General - aox3, laying in bed quietly, no acute distress, pleasant heent - MMM, NCAT eyes - no scleral icterus cardio - rrr, s1s2, cta, no mrg lungs - ctab, no wheeze/rhonchi/rales, not in respiratory distress abd - obese, soft, nontender, no rebound or guarding extremities - moves all extremities equally, strength 5/5, minimal edema of the ankles bilaterally neuro- no fnd, sensation intact psych - normal affect, normal mood skin - warm, dry, intact - Patient Status Disposition: Home, Self-Care Condition: Good Functional capacity at discharge: independent ambulation Overall status at discharge: patient is back to baseline - Discharge Instructions Follow Up With: Genaro Pérez DO [Primary Care Provider] - - Diet and Activity Activity: increase activity as tolerated Diet: diabetic diet
[2019-02-21] MEDS ORDERED: Insulin LISPRO 300 UNITS/3 ML VIAL SQ SCH (21:00)
== END 2019-02-21 15:27 | disposition home or self-care (01) ==
LOC: 3ANU 19:07 → EMEROOARM 19:07 → 3ANU 02-21 00:22
PROVIDERS: ADMIT Internal Medicine; ATTEND Internal Medicine

== ENCOUNTER 2021-10-21 11:16 | Observation (INO) ==
[2021-10-21] MEDS ORDERED: Aspirin 325 MG TABLET PO ONE (11:48)
[2021-10-21 12:13] LABS: Basophils % 0.6 %; Eosinophils # 0.1 K/mcL (0.0-0.6); Eosinophils % 1.3 %; Hematocrit 43.8 % (35.3-44.9); Immature Granulocytes % 0.3 % (0-4); Lymphocytes # 0.8 K/mcL (0.6-4.6); Lymphocytes % 12.7 %; Mean Corpuscular Hemoglobin 27.9 pg (28.0-33.3); Mean Corpuscular Volume 87.4 fL (83.0-100.0); Mean Platelet Volume 11.3 fL (9.4-12.4); Monocytes # 0.8 K/mcL (0.0-1.3); Monocytes % 12.7 %; Neutrophils # 4.6 K/mcL (1.6-8.9); Platelet Count 258 K/mcL (140-400); Red Blood Count 5.01 M/mcL (3.82-4.97); Red Cell Distribution Width 13.6 % (11.5-14.5); Segmented Neutrophils % 72.4 %; White Blood Count 6.4 K/mcL (4.3-11.1)
[2021-10-21 12:29] LABS: INR 1.1; Prothrombin Time 11.7 Seconds (9.4-12.1)
[2021-10-21 12:32] LABS: Activated Partial Thrombo Time 30.5 Seconds (26.0-36.0)
[2021-10-21 12:44] LABS: Alanine Aminotransferase 12 Units/L (7-52); Albumin 3.5 g/dL (3.5-5.7); Alkaline Phosphatase 106 Units/L (34-104); Aspartate Amino Transferase 16 Units/L (13-39); BUN/Creatinine Ratio 16 (6-26); Bilirubin,Direct 0.1 mg/dL (0.0-0.2); Bilirubin,Indirect 0.3 mg/dL (0.0-1.0); Bilirubin,Total 0.4 mg/dL (0.3-1.0); Blood Urea Nitrogen 17 mg/dL (8-23); Calcium 8.7 mg/dL (8.6-10.3); Carbon Dioxide 26 mEq/L (23-29); Chloride 100 mEq/L (98-107); Globulin 3.4 g/dL (2.4-3.5); Glucose 265 mg/dL (70-105); Osmolality,Calculated 289 (280-300); Potassium 4.6 mEq/L (3.5-5.1); Sodium 134 mEq/L (136-145); Total Protein 6.9 g/dL (6.4-8.9); Troponin I 0.12 ng/mL (< 0.04); eGFR For African Americans > 60 (> 60); eGFR For Non-African Americans 50 (> 60)
[2021-10-21] MEDS ORDERED: *HR* Heparin 5,000 UNIT/ML VIAL IVP ONE (13:39)
[2021-10-21] MEDS ORDERED: *HR* Heparin 5,000 UNIT/ML VIAL IVP PRN ×2 (13:39)
[2021-10-21 13:44] LABS: Influenza A PCR Negative (Negative); Influenza B PCR Negative (Negative); Resp. Syncytial Virus PCR Negative (Negative)
[2021-10-21 14:09] LABS: SARS-CoV-2 by PCR (In House) Positive (Negative)
[2021-10-21] MEDS: Heparin 25,000UNIT/250ML 1/2NS 25,000 UNIT/250 ML IV.SOLN IVC SCH (14:53)
[2021-10-21] MEDS ORDERED: MOM Conc 10 ML UD.LIQ PO PRN (14:57)
[2021-10-21] MEDS ORDERED: Naloxone 0.4 MG/ML INJ IVP PRN (14:57)
[2021-10-21] MEDS ORDERED: Melatonin 3 MG TABLET PO PRN (14:57)
[2021-10-21] MEDS ORDERED: Ondansetron ODT 4 MG TAB.RAPDIS SL PRN (14:57)
[2021-10-21] MEDS ORDERED: Dextrose Gel 15 GM/37.5 ML TUBE PO PRN ×2 (15:03)
[2021-10-21] MEDS ORDERED: D5% in Water 1,000 ML IVC PRN (15:03)
[2021-10-21] MEDS ORDERED: *HR* Dextrose 50 % in Water (Syg) 50 ML SYRINGE IVP PRN (15:03)
[2021-10-21] MEDS ORDERED: Perflutren Lipid Microsphere 1.3 ML in 0.9 % Sodium Chloride 8.7 ML IVP PRN (15:03)
[2021-10-21] MEDS: Insulin LISPRO 300 UNITS/3 ML VIAL SUBQ SCH ×2 (16:01→21:02)
[2021-10-21] MEDS: Insulin DETEMIR 100 UNIT/ML X5UNITS SUBQ SCH (21:02)
[2021-10-22 01:57] LABS: Hemoglobin 13.4 g/dL (11.5-15.4); Mean Corpuscular HGB Conc 31.9 g/dL (31.6-35.5); Mean Corpuscular Hemoglobin 28.1 pg (28.0-33.3); Mean Corpuscular Volume 88.1 fL (83.0-100.0); Mean Platelet Volume 10.8 fL (9.4-12.4); Platelet Count 229 K/mcL (140-400); Red Blood Count 4.77 M/mcL (3.82-4.97); Red Cell Distribution Width 13.6 % (11.5-14.5); White Blood Count 6.8 K/mcL (4.3-11.1)
[2021-10-22 02:03] LABS: BUN/Creatinine Ratio 18 (6-26); Blood Urea Nitrogen 17 mg/dL (8-23); Calcium 8.4 mg/dL (8.6-10.3); Carbon Dioxide 28 mEq/L (23-29); Chloride 100 mEq/L (98-107); Chol/HDL Ratio 2.4 (0-4.9); Cholesterol 100 mg/dL (< 200); Glucose 66 mg/dL (70-105); HDL Cholesterol 41 mg/dL (40-59); LDL Cholesterol,Calculated 48 mg/dL (< 100); Osmolality,Calculated 280 (280-300); Potassium 3.7 mEq/L (3.5-5.1); Sodium 135 mEq/L (136-145); Triglycerides 54 mg/dL (< 150); eGFR For African Americans > 60 (> 60); eGFR For Non-African Americans 54 (> 60)
[2021-10-22 02:25] LABS: Estimated Average Glucose 229 mg/dl; Hemoglobin A1C 9.6 %
[2021-10-22 02:59] LABS: Troponin I 0.95 ng/mL (< 0.04)
[2021-10-22] MEDS: Insulin LISPRO 300 UNITS/3 ML VIAL SUBQ SCH ×4 (08:22→20:55)
[2021-10-22] MEDS: Aspirin Enteric Coated 81 MG Tablet PO SCH (08:37)
[2021-10-22] MEDS: Insulin DETEMIR 100 UNIT/ML X5UNITS SUBQ SCH (20:55)
[2021-10-22] MEDS: Heparin 25,000UNIT/250ML 1/2NS 25,000 UNIT/250 ML IV.SOLN IVC SCH (23:30)
[2021-10-23] MEDS ORDERED: Acetaminophen 325 MG TABLET PO PRN (00:08)
[2021-10-23] MEDS: Insulin LISPRO 300 UNITS/3 ML VIAL SUBQ SCH ×2 (09:17→13:35)
[2021-10-23] MEDS: Aspirin Enteric Coated 81 MG Tablet PO SCH (09:17)
[2021-10-23 11:32] VITALS: BP 125/69; PULSE 68; TEMP 98.4
[2021-10-23 11:35] LABS: Adenovirus F 40/41 PCR Not detected (Not detect); Astrovirus PCR Not detected (Not detect); C.difficile Toxin A/B Gene PCR Not detected (Not detect); Campylobacter by PCR Not detected (Not detect); Cryptosporidium by PCR Not detected (Not detect); Cyclospora cayetanensis PCR Not detected (Not detect); E. coli O157 by PCR Not detected (Not detect); Entamoeba histolytica PCR Not detected (Not detect); Enteroaggregative E.coli(EAEC) Not detected (Not detect); Enteropathogenic E.coli(EPEC) Not detected (Not detect); Enterotoxigenic E.coli (ETEC) Not detected (Not detect); Giardia lamblia PCR Not detected (Not detect); Norovirus GI/GII PCR Not detected (Not detect); Plesiomonas shigelloides PCR Not detected (Not detect); Rotavirus A PCR Not detected (Not detect); Salmonella PCR Not detected (Not detect); Sapovirus PCR Not detected (Not detect); Shig/EnteroinvasiveE coli EIEC Not detected (Not detect); Shigalike tox-prod E coli STEC Not detected (Not detect); Vibrio PCR Not detected (Not detect); Vibrio cholerae PCR Not detected (Not detect); Yersinia enterocolitica PCR Not detected (Not detect)
[2021-10-23 14:03] VITALS: O2SAT 95
== END 2021-10-23 15:59 | disposition home or self-care (01) ==
LOC: EMEROOARM 11:16 → 3BNU 11:16 → SUATTDRO 14:39 → 3BNU 15:31
PROVIDERS: ADMIT Internal Medicine; ATTEND Registered Nurse

== ENCOUNTER 2022-01-01 07:48 | Inpatient (IN) ==
[2022-01-01 08:18] LABS: Basophils % 0.5 %; Eosinophils # 0.3 K/mcL (0.0-0.6); Eosinophils % 2.9 %; Hematocrit 47.3 % (35.3-44.9); Hemoglobin 15.3 g/dL (11.5-15.4); Immature Granulocytes % 0.2 % (0-4); Lymphocytes # 1.7 K/mcL (0.6-4.6); Lymphocytes % 19.9 %; Mean Corpuscular HGB Conc 32.3 g/dL (31.6-35.5); Mean Corpuscular Hemoglobin 28.7 pg (28.0-33.3); Mean Corpuscular Volume 88.7 fL (83.0-100.0); Mean Platelet Volume 10.5 fL (9.4-12.4); Monocytes # 0.5 K/mcL (0.0-1.3); Monocytes % 5.9 %; Platelet Count 229 K/mcL (140-400); Red Blood Count 5.33 M/mcL (3.82-4.97); Red Cell Distribution Width 14.7 % (11.5-14.5); Segmented Neutrophils % 70.6 %; White Blood Count 8.5 K/mcL (4.3-11.1)
[2022-01-01 08:38] LABS: BUN/Creatinine Ratio 16 (6-26); Blood Urea Nitrogen 16 mg/dL (8-23); Calcium 8.9 mg/dL (8.6-10.3); Carbon Dioxide 30 mEq/L (23-29); Chloride 100 mEq/L (98-107); Glucose 286 mg/dL (70-105); Osmolality,Calculated 292 (280-300); Potassium 4.5 mEq/L (3.5-5.1); Sodium 135 mEq/L (136-145); Troponin I < 0.03 ng/mL (< 0.04); eGFR For African Americans > 60 (> 60); eGFR For Non-African Americans 53 (> 60)
[2022-01-01 10:47] LABS: Bacteria,Urine Few per hpf (None-Few); Bilirubin,Urine Negative (Negative); Blood,Urine Negative (Negative); Clarity,Urine Clear (Clear); Color,Urine Light-Yellow (Yellow); Glucose,Urine (UA) 500 mg/dL (Normal); Ketones,Urine Negative (Negative); Leukocyte Esterase,Urine Moderate (Negative); Mucus,Urine Few per lpf (None-Few); Nitrite,Urine Positive (Negative); PH,Urine 7.5 pH Units (5.0-8.0); Protein,Urine 30 mg/dL (Neg-Trace); Specific Gravity,Urine 1.012 (1.010-1.025); Squamous Epithelial Cell,Urine Few per hpf (None-Few); Urobilinogen,Urine Normal (Normal); WBC,Urine 15-30 per hpf (0-3)
[2022-01-01] MEDS ORDERED: cefTRIAXone 1,000 MG in 0.9 % Sodium Chloride Mini Bag 100 ML IVPB ONE (10:57)
[2022-01-01] MEDS ORDERED: Melatonin 3 MG TABLET PO PRN (11:26)
[2022-01-01] MEDS ORDERED: Naloxone 0.4 MG/ML INJ IVP PRN (11:26)
[2022-01-01] MEDS ORDERED: Dextrose 4 GM Chewable Tablets PO PRN ×2 (11:31)
[2022-01-01] MEDS ORDERED: *HR* Dextrose 50 % in Water (Syg) 50 ML SYRINGE IVP PRN (11:31)
[2022-01-01] MEDS ORDERED: D5% in Water 1,000 ML IVC PRN (11:31)
[2022-01-01] MEDS ORDERED: Furosemide 40 MG TABLET PO SCH (12:30)
[2022-01-01 12:31] LABS: Creatine Kinase 61 Units/L (30-223)
[2022-01-01] MEDS ORDERED: Gadolinium Contrast Agent (WT Based) IV PRN (16:18)
[2022-01-01] MEDS: Insulin LISPRO 300 UNITS/3 ML VIAL SUBQ SCH ×2 (16:49→20:30)
[2022-01-01] MEDS ORDERED: cefTRIAXone 1,000 MG in 0.9 % Sodium Chloride Mini Bag 100 ML IVPB SCH (18:00)
[2022-01-01] MEDS ORDERED: Perflutren Lipid Microsphere 1.3 ML in 0.9 % Sodium Chloride 8.7 ML IVP PRN (18:12)
[2022-01-01] MEDS ORDERED: Isovue-370 500 ML BOTTLE IVP ONE (18:32)
[2022-01-01] MEDS ORDERED: Aspirin 325 MG TABLET PO ONE (18:33)
[2022-01-01] MEDS: Insulin DETEMIR 100 UNIT/ML X5UNITS SUBQ SCH (20:30)
[2022-01-02 03:08] LABS: Basophils # 0.1 K/mcL (0.0-0.2); Basophils % 0.5 %; Eosinophils # 0.1 K/mcL (0.0-0.6); Eosinophils % 1.3 %; Hematocrit 41.2 % (35.3-44.9); Immature Granulocytes % 0.2 % (0-4); Lymphocytes % 28.2 %; Mean Corpuscular HGB Conc 33.3 g/dL (31.6-35.5); Mean Corpuscular Hemoglobin 28.8 pg (28.0-33.3); Mean Corpuscular Volume 86.7 fL (83.0-100.0); Mean Platelet Volume 10.9 fL (9.4-12.4); Monocytes # 0.7 K/mcL (0.0-1.3); Neutrophils # 6.6 K/mcL (1.6-8.9); Platelet Count 224 K/mcL (140-400); Red Blood Count 4.75 M/mcL (3.82-4.97); Red Cell Distribution Width 14.7 % (11.5-14.5); Segmented Neutrophils % 62.8 %; White Blood Count 10.5 K/mcL (4.3-11.1)
[2022-01-02 03:11] LABS: Hemoglobin 13.7 g/dL (11.5-15.4)
[2022-01-02 03:27] LABS: INR 1.1; Prothrombin Time 11.9 Seconds (9.4-12.1)
[2022-01-02 03:34] LABS: Alanine Aminotransferase 6 Units/L (7-52); Albumin 3.3 g/dL (3.5-5.7); Albumin/Globulin Ratio 1.1 (1.1-2.2); Alkaline Phosphatase 102 Units/L (34-104); Aspartate Amino Transferase 13 Units/L (13-39); BUN/Creatinine Ratio 18 (6-26); Bilirubin,Total 0.4 mg/dL (0.3-1.0); Blood Urea Nitrogen 16 mg/dL (8-23); Calcium 8.7 mg/dL (8.6-10.3); Carbon Dioxide 24 mEq/L (23-29); Chloride 104 mEq/L (98-107); Chol/HDL Ratio 3.2 (0-4.9); Cholesterol 144 mg/dL (< 200); Globulin 3.1 g/dL (2.4-3.5); Glucose 116 mg/dL (70-105); HDL Cholesterol 45 mg/dL (40-59); LDL Cholesterol,Calculated 88 mg/dL (< 100); Osmolality,Calculated 284 (280-300); Potassium 4.3 mEq/L (3.5-5.1); Sodium 136 mEq/L (136-145); Total Protein 6.4 g/dL (6.4-8.9); Triglycerides 55 mg/dL (< 150); Troponin I < 0.03 ng/mL (< 0.04); eGFR For African Americans > 60 (> 60); eGFR For Non-African Americans > 60 (> 60)
[2022-01-02 04:31] LABS: Estimated Average Glucose 249 mg/dl; Hemoglobin A1C 10.3 %
[2022-01-02] MEDS: Insulin LISPRO 300 UNITS/3 ML VIAL SUBQ SCH ×4 (08:16→21:21)
[2022-01-02] MEDS ORDERED: Aspirin Enteric Coated 81 MG Tablet PO SCH (09:00)
[2022-01-02] MEDS: cefTRIAXone 1,000 MG in 0.9 % Sodium Chloride 10 ML IVP SCH (09:06)
[2022-01-02] MEDS: Insulin DETEMIR 100 UNIT/ML X5UNITS SUBQ SCH ×2 (09:23→21:21)
[2022-01-02] MEDS: Ondansetron ODT 4 MG TAB.RAPDIS SL PRN (11:22)
[2022-01-02] MEDS: Aspirin 81 MG TAB.CHEW PO SCH (11:23)
[2022-01-02] MEDS: Multivit/Ca/Min/Fe/FA 1 TAB TABLET PO SCH (11:23)
[2022-01-03 04:41] LABS: Basophils # 0.1 K/mcL (0.0-0.2); Basophils % 0.8 %; Eosinophils # 0.3 K/mcL (0.0-0.6); Eosinophils % 3.8 %; Hematocrit 45.3 % (35.3-44.9); Hemoglobin 14.9 g/dL (11.5-15.4); Immature Granulocytes % 0.1 % (0-4); Lymphocytes # 2.4 K/mcL (0.6-4.6); Lymphocytes % 32.1 %; Mean Corpuscular HGB Conc 32.9 g/dL (31.6-35.5); Mean Corpuscular Hemoglobin 28.5 pg (28.0-33.3); Mean Corpuscular Volume 86.8 fL (83.0-100.0); Mean Platelet Volume 10.8 fL (9.4-12.4); Monocytes # 0.6 K/mcL (0.0-1.3); Monocytes % 8.4 %; Neutrophils # 4.2 K/mcL (1.6-8.9); Platelet Count 237 K/mcL (140-400); Red Blood Count 5.22 M/mcL (3.82-4.97); Red Cell Distribution Width 14.9 % (11.5-14.5); Segmented Neutrophils % 54.8 %; White Blood Count 7.6 K/mcL (4.3-11.1)
[2022-01-03 05:04] LABS: BUN/Creatinine Ratio 17 (6-26); Blood Urea Nitrogen 17 mg/dL (8-23); Carbon Dioxide 26 mEq/L (23-29); Chloride 105 mEq/L (98-107); Glucose 112 mg/dL (70-105); Osmolality,Calculated 290 (280-300); Potassium 4.1 mEq/L (3.5-5.1); Sodium 139 mEq/L (136-145); eGFR For African Americans > 60 (> 60); eGFR For Non-African Americans 54 (> 60)
[2022-01-03] MEDS: cefTRIAXone 1,000 MG in 0.9 % Sodium Chloride 10 ML IVP SCH (07:26)
[2022-01-03] MEDS: Insulin LISPRO 300 UNITS/3 ML VIAL SUBQ SCH ×4 (07:26→20:25)
[2022-01-03] MEDS: Multivit/Ca/Min/Fe/FA 1 TAB TABLET PO SCH (07:27)
[2022-01-03] MEDS: Aspirin 81 MG TAB.CHEW PO SCH (07:27)
[2022-01-03] MEDS: Insulin DETEMIR 100 UNIT/ML X5UNITS SUBQ SCH ×2 (07:27→20:25)
[2022-01-03] MEDS: Ondansetron ODT 4 MG TAB.RAPDIS SL PRN (17:55)
[2022-01-03] MEDS: Cefdinir 300 MG CAPSULE PO SCH (20:25)
[2022-01-04 06:45] LABS: Basophils # 0.1 K/mcL (0.0-0.2); Basophils % 0.9 %; Eosinophils # 0.4 K/mcL (0.0-0.6); Eosinophils % 4.4 %; Hematocrit 44.3 % (35.3-44.9); Hemoglobin 14.8 g/dL (11.5-15.4); Immature Granulocytes % 0.4 % (0-4); Lymphocytes # 2.3 K/mcL (0.6-4.6); Lymphocytes % 28.6 %; Mean Corpuscular HGB Conc 33.4 g/dL (31.6-35.5); Mean Corpuscular Hemoglobin 28.8 pg (28.0-33.3); Mean Corpuscular Volume 86.2 fL (83.0-100.0); Mean Platelet Volume 10.7 fL (9.4-12.4); Monocytes # 0.8 K/mcL (0.0-1.3); Monocytes % 9.2 %; Neutrophils # 4.6 K/mcL (1.6-8.9); Platelet Count 241 K/mcL (140-400); Red Blood Count 5.14 M/mcL (3.82-4.97); Red Cell Distribution Width 15.2 % (11.5-14.5); Segmented Neutrophils % 56.5 %; White Blood Count 8.2 K/mcL (4.3-11.1)
[2022-01-04 08:20] LABS: BUN/Creatinine Ratio 19 (6-26); Blood Urea Nitrogen 20 mg/dL (8-23); Calcium 8.8 mg/dL (8.6-10.3); Carbon Dioxide 27 mEq/L (23-29); Chloride 104 mEq/L (98-107); Glucose 105 mg/dL (70-105); Osmolality,Calculated 289 (280-300); Potassium 4.3 mEq/L (3.5-5.1); Sodium 138 mEq/L (136-145); eGFR For African Americans > 60 (> 60); eGFR For Non-African Americans 50 (> 60)
[2022-01-04] MEDS: Multivit/Ca/Min/Fe/FA 1 TAB TABLET PO SCH (08:22)
[2022-01-04] MEDS: Aspirin 81 MG TAB.CHEW PO SCH (08:22)
[2022-01-04] MEDS: Insulin LISPRO 300 UNITS/3 ML VIAL SUBQ SCH ×4 (08:22→20:17)
[2022-01-04] MEDS: Cefdinir 300 MG CAPSULE PO SCH ×2 (08:22→20:45)
[2022-01-04] MEDS: Insulin DETEMIR 100 UNIT/ML X5UNITS SUBQ SCH ×2 (08:22→20:17)
[2022-01-05 01:14] LABS: Basophils # 0.1 K/mcL (0.0-0.2); Basophils % 0.7 %; Eosinophils # 0.4 K/mcL (0.0-0.6); Eosinophils % 4.1 %; Hematocrit 45.6 % (35.3-44.9); Immature Granulocytes % 0.2 % (0-4); Lymphocytes # 3.1 K/mcL (0.6-4.6); Lymphocytes % 33.6 %; Mean Corpuscular HGB Conc 32.9 g/dL (31.6-35.5); Mean Corpuscular Hemoglobin 29.1 pg (28.0-33.3); Mean Corpuscular Volume 88.4 fL (83.0-100.0); Mean Platelet Volume 10.7 fL (9.4-12.4); Monocytes # 0.8 K/mcL (0.0-1.3); Monocytes % 8.5 %; Neutrophils # 4.9 K/mcL (1.6-8.9); Platelet Count 257 K/mcL (140-400); Red Blood Count 5.16 M/mcL (3.82-4.97); Segmented Neutrophils % 52.9 %; White Blood Count 9.2 K/mcL (4.3-11.1)
[2022-01-05 01:34] LABS: Potassium 4.2 mEq/L (3.5-5.1)
[2022-01-05] MEDS: Insulin LISPRO 300 UNITS/3 ML VIAL SUBQ SCH ×4 (08:03→22:00)
[2022-01-05] MEDS: Multivit/Ca/Min/Fe/FA 1 TAB TABLET PO SCH (08:44)
[2022-01-05] MEDS: Cefdinir 300 MG CAPSULE PO SCH ×2 (08:44→21:59)
[2022-01-05] MEDS: Aspirin 81 MG TAB.CHEW PO SCH (08:45)
[2022-01-05] MEDS: Insulin DETEMIR 100 UNIT/ML X5UNITS SUBQ SCH ×2 (08:50→22:00)
[2022-01-06] MEDS: Insulin LISPRO 300 UNITS/3 ML VIAL SUBQ SCH ×3 (07:52→17:32)
[2022-01-06] MEDS: Insulin DETEMIR 100 UNIT/ML X5UNITS SUBQ SCH (08:49)
[2022-01-06] MEDS: Aspirin 81 MG TAB.CHEW PO SCH (08:49)
[2022-01-06] MEDS: Multivit/Ca/Min/Fe/FA 1 TAB TABLET PO SCH (08:49)
[2022-01-06] MEDS: Cefdinir 300 MG CAPSULE PO SCH (08:50)
[2022-01-06 14:33] VITALS: BP 144/81; PULSE 67; TEMP 97.3; O2SAT 94
== END 2022-01-06 19:27 | disposition other institution (70) | DRG 65 ==
LOC: EMEROOARM 07:48 → 3BNU 07:48 → SUATTDRO 11:48 → 3BNU 13:20 → SUATTDRO 01-03 15:33
PROVIDERS: ADMIT Internal Medicine; ATTEND Family Medicine